=== PATIENT | female | born 1940 | race Hispanic/Latino ===

== ENCOUNTER 2017-07-07 12:46 | Inpatient (IN) | payer MEDICARE, OTHER ==
[2017-07-07 14:18] LABS: Basophils % (Auto) 0.3 % (0.0-1.8); Eosinophils % (Auto) 0.1 % (0.0-4.3); Hematocrit 38.9 % (30.3-42.9); Mean Corpuscular HGB Conc 34 % (30-34); Mean Corpuscular Hemoglobin 29 pg (28-32); Mean Corpuscular Volume 87 fl (79-97); Platelet Count 305 K/mm3 (140-440); Red Blood Count 4.46 M/mm3 (3.65-5.03); Red Cell Distribution Width 13.4 % (13.2-15.2); White Blood Count 10.8 K/mm3 (4.5-11.0)
[2017-07-07 14:28] LABS: INR 1.29 (0.87-1.13)
[2017-07-07 14:38] LABS: Alanine Aminotransferase 7 units/L (7-56); Albumin 2.9 g/dL (3.9-5); Albumin/Globulin Ratio 0.9 %; Alkaline Phosphatase 62 units/L (35-129); Anion Gap 19 mmol/L; BUN/Creatinine Ratio 12; Blood Urea Nitrogen 11 mg/dL (7-17); Calcium 7.2 mg/dL (8.4-10.2); Carbon Dioxide 32 mmol/L (22-30); Chloride 86.8 mmol/L (98-107); Glucose 177 mg/dL (65-100); Sodium 135 mmol/L (137-145)
[2017-07-07 14:50] LABS: Potassium 2.7 mmol/L (3.6-5.0)
[2017-07-07 16:05] LABS: Bacteria,Urine 1+ /HPF (Negative); Bilirubin,Urine NEG (Negative); Blood,Urine NEG (Negative); Ketones,Urine NEG (Negative); Leukocyte Esterase,Urine SM (Negative); Mucus,Urine FEW /HPF; Nitrite,Urine NEG (Negative); Urobilinogen,Urine < 2.0 mg/dL (<2.0)
[2017-07-07] MEDS ORDERED: MAGNESIUM SULFATE 2GM/50ML 2 GM/50 ML BAG IV ONE (16:47)
[2017-07-07] MEDS ORDERED: ATROVENT IH ONE (16:47)
[2017-07-07] MEDS ORDERED: PROVENTIL IH ONE (16:47)
[2017-07-07] MEDS ORDERED: TYLENOL PO ONE (16:48)
--- NOTE | 2017-07-07 16:48 | Emergency Department Report ---
ED General Adult HPI - General Chief complaint: Weakness Stated complaint: WEAKNESS Time Seen by Provider: 07/07/17 16:37 Source: patient, family, EMS (ems notes not available at time of chart dictation), RN notes reviewed, old records reviewed Mode of arrival: Ambulatory Limitations: No Limitations - History of Present Illness Initial comments: Primary care Dr.: Family [facility] Cardiology: Dr Gan Pulmonology: Dr Piedra Past medical history: COPD, diabetes, hypertension, atrial fibrillation on systemic anticoagulation; eliquis This is a 77-year-old female who is previously known to this provider. Patient presents to the ER with a complaint of cough, wheezing, shortness of breath, almost passing out, hypotension, chills and shakes. Patient reports that she was recently diagnosed last week with pneumonia by her respiratory technician, and was treated empirically with azithromycin. She presents to the ER with worsening symptoms, and indicates her blood pressure was low at home, reports that it was in the 70s. Her symptoms have been constant for the past week. They do not radiate anywhere. They do not have exacerbating or relieving factors. -: days(s) Severity scale (0 -10): 0 Consistency: constant Improves with: none Worsens with: none Associated Symptoms: cough, fever/chills, loss of appetite, malaise, shortness of breath, weakness. denies: confusion - Related Data Home Medications Medication Instructions Recorded Confirmed Last Taken Montelukast [Singulair] 10 mg PO QPM PRN 10/05/15 03/04/16 Unknown Promethazine Dm [Phenergan DM 5 ml PO Q6H PRN 10/05/15 03/04/16 Unknown 6.25-15 mg/5 ml] ALPRAZolam [Xanax TAB] 0.25 mg PO BID PRN 03/04/16 03/04/16 03/03/16 23:00 Apixaban [Eliquis] 5 mg PO BID 03/04/16 03/04/16 03/03/16 18:00 Calcium Carbonate/Vitamin D3 1 each PO DAILY 03/04/16 03/04/16 03/03/16 06:30 [Calcium 500 + D Tablet] Furosemide [Lasix TAB] 20 meq PO DAILY 03/04/16 03/04/16 03/03/16 22:30 Insulin Lispro Prot/Lispro 12 unit SQ BID 03/04/16 03/04/16 03/03/16 18:30 [HumaLOG MIX 75/25] Potassium Chloride [Klor-Con] 20 meq PO DAILY 03/04/16 03/04/16 03/03/16 06:30 cloNIDine [Catapres] 0.1 mg PO BID PRN 03/04/16 03/04/16 03/03/16 22:20 metFORMIN [Glucophage] 500 mg PO BID 03/04/16 03/04/16 03/03/16 Previous Rx's Medication Instructions Recorded Last Taken Type amLODIPine [Norvasc] 5 mg PO QDAY #30 tablet 10/10/15 03/03/16 06:30 Rx Allergies Allergy/AdvReac Type Severity Reaction Status Date / Time levofloxacin [From Levaquin] Allergy Swelling Verified 10/05/15 15:56 lisinopril Allergy Angioedema Verified 10/06/15 04:05 Penicillins Allergy Swelling Verified 12/22/13 19:40 ED Review of Systems ROS: Stated complaint: WEAKNESS Other details as noted in HPI Constitutional: fever, malaise, weakness ENT: congestion Respiratory: cough, shortness of breath, SOB with exertion, wheezing Cardiovascular: denies: syncope Gastrointestinal: denies: vomiting Genitourinary: denies: dysuria Musculoskeletal: arthralgia Skin: denies: lesions Neurological: weakness ED Past Medical Hx - Past Medical History Hx Hypertension: Yes Hx Diabetes: Yes Hx COPD: Yes Additional medical history: chronic back pain.Afib - Surgical History Hx Cholecystectomy: Yes Additional Surgical History: hysterectomy colonectomy, elbow surgery - Social History Smoking Status: Never Smoker - Medications Home Medications: Home Medications Medication Instructions Recorded Confirmed Last Taken Type Montelukast [Singulair] 10 mg PO QPM PRN 10/05/15 03/04/16 Unknown History Promethazine Dm [Phenergan DM 5 ml PO Q6H PRN 10/05/15 03/04/16 Unknown History 6.25-15 mg/5 ml] amLODIPine [Norvasc] 5 mg PO QDAY #30 tablet 10/10/15 03/04/16 03/03/16 06:30 Rx ALPRAZolam [Xanax TAB] 0.25 mg PO BID PRN 03/04/16 03/04/16 03/03/16 23:00 History Apixaban [Eliquis] 5 mg PO BID 03/04/16 03/04/16 03/03/16 18:00 History Calcium Carbonate/Vitamin D3 1 each PO DAILY 03/04/16 03/04/16 03/03/16 06:30 History [Calcium 500 + D Tablet] Furosemide [Lasix TAB] 20 meq PO DAILY 03/04/16 03/04/16 03/03/16 22:30 History Insulin Lispro Prot/Lispro 12 unit SQ BID 03/04/16 03/04/16 03/03/16 18:30 History [HumaLOG MIX 75/25] Potassium Chloride [Klor-Con] 20 meq PO DAILY 03/04/16 03/04/16 03/03/16 06:30 History cloNIDine [Catapres] 0.1 mg PO BID PRN 03/04/16 03/04/16 03/03/16 22:20 History metFORMIN [Glucophage] 500 mg PO BID 03/04/16 03/04/16 03/03/16 History ED Physical Exam - General Limitations: No Limitations General appearance: alert, in distress - Head Head exam: Present: atraumatic, normocephalic - Eye Eye exam: Present: normal appearance, EOMI - ENT ENT exam: Present: normal exam, normal orophraynx, mucous membranes moist - Neck Neck exam: Present: normal inspection, full ROM - Respiratory Respiratory exam: Present: respiratory distress, wheezes, rhonchi - Cardiovascular Cardiovascular Exam: Present: normal rhythm, tachycardia, normal heart sounds. Absent: systolic murmur, diastolic murmur, rubs, gallop - GI/Abdominal GI/Abdominal exam: Present: soft, normal bowel sounds. Absent: distended, tenderness, guarding, rebound, rigid, pulsatile mass - Extremities Exam Extremities exam: Present: normal inspection, full ROM. Absent: pedal edema, calf tenderness - Back Exam Back exam: Present: normal inspection, full ROM. Absent: tenderness, CVA tenderness (R), paraspinal tenderness, vertebral tenderness - Neurological Exam Neurological exam: Present: alert, oriented X3, normal gait, other (Extraocular movements intact. Tongue midline. No facial droop. Facial sensation intact to light touch in the V1, V2, V3 distribution bilaterally. 5 and 5 strength in 4 extremities.. Sensation is intact to light touch in 4 extremities.). Absent : motor sensory deficit - Psychiatric Psychiatric exam: Present: normal affect, normal mood - Skin Skin exam: Present: warm, dry, intact, normal color. Absent: rash ED Course Vital Signs 07/07/17 07/07/17 14:14 14:16 Temperature 98.7 F Pulse Rate 109 H Respiratory 17 20 Rate Blood Pressure 136/60 [Left] O2 Sat by Pulse 96 94 Oximetry - Reevaluation(s) Reevaluation #1: 07/07/17 19:24 Patient also found to have multiple electrolyte derangements, including hypokalemia and hypomagnesemia; these have been repleted. ED Medical Decision Making - Lab Data Result diagrams: 07/07/17 13:58 07/07/17 13:58 Vital Signs 07/07/17 07/07/17 14:14 14:16 Temperature 98.7 F Pulse Rate 109 H Respiratory 17 20 Rate Blood Pressure 136/60 [Left] O2 Sat by Pulse 96 94 Oximetry Lab Results 07/07/17 07/07/17 07/07/17 Range/Units 13:58 13:58 13:58 WBC 10.8 (4.5-11.0) K/mm3 RBC 4.46 (3.65-5.03) M/mm3 Hgb 13.0 (10.1-14.3) gm/dl Hct 38.9 (30.3-42.9) % MCV 87 (79-97) fl MCH 29 (28-32) pg MCHC 34 (30-34) % RDW 13.4 (13.2-15.2) % Plt Count 305 (140-440) K/mm3 Lymph % (Auto) 4.6 L (13.4-35.0) % [place] % (Auto) 7.9 H (0.0-7.3) % Eos % (Auto) 0.1 (0.0-4.3) % Baso % (Auto) 0.3 (0.0-1.8) % Lymph # 0.5 L (1.2-5.4) K/mm3 [place] # 0.9 H (0.0-0.8) K/mm3 Eos # 0.0 (0.0-0.4) K/mm3 Baso # 0.0 (0.0-0.1) K/mm3 Seg Neutrophils % 87.1 H (40.0-70.0) % Seg Neutrophils # 9.4 H (1.8-7.7) K/mm3 PT 16.7 H (12.2-14.9) Sec. INR 1.29 H (0.87-1.13) Sodium 135 L (137-145) mmol/L Potassium 2.7 L* (3.6-5.0) mmol/L Chloride 86.8 L (98-107) mmol/L Carbon Dioxide 32 H (22-30) mmol/L Anion Gap 19 mmol/L BUN 11 (7-17) mg/dL Creatinine 0.9 (0.7-1.2) mg/dL Estimated GFR > 60 ml/min BUN/Creatinine Ratio 12 % Glucose 177 H (65-100) mg/dL Calcium 7.2 L (8.4-10.2) mg/dL Magnesium (1.7-2.3) mg/dL Total Bilirubin 0.60 (0.1-1.2) mg/dL AST 17 (5-40) units/L ALT 7 (7-56) units/L Alkaline Phosphatase 62 (35-129) units/L Total Protein 6.0 L (6.3-8.2) g/dL Albumin 2.9 L (3.9-5) g/dL Albumin/Globulin Ratio 0.9 % Urine Color (Yellow) Urine Turbidity (Clear) Urine pH (5.0-7.0) Ur Specific [place] (1.003-1.030) Urine Protein (Negative) mg/dL Urine Glucose (UA) (Negative) mg/dL Urine Ketones (Negative) mg/dL Urine Blood (Negative) Urine Nitrite (Negative) Urine Bilirubin (Negative) Urine Urobilinogen (<2.0) mg/dL Ur Leukocyte Esterase (Negative) Urine WBC (Auto) (0.0-6.0) /HPF Urine RBC (Auto) (0.0-6.0) /HPF U Epithel Cells (Auto) (0-13.0) /HPF Urine Bacteria (Auto) (Negative) /HPF Urine Mucus /HPF 07/07/17 07/07/17 Range/Units 13:58 15:30 WBC (4.5-11.0) K/mm3 RBC (3.65-5.03) M/mm3 Hgb (10.1-14.3) gm/dl Hct (30.3-42.9) % MCV (79-97) fl MCH (28-32) pg MCHC (30-34) % RDW (13.2-15.2) % Plt Count (140-440) K/mm3 Lymph % (Auto) (13.4-35.0) % [place] % (Auto) (0.0-7.3) % Eos % (Auto) (0.0-4.3) % Baso % (Auto) (0.0-1.8) % Lymph # (1.2-5.4) K/mm3 [place] # (0.0-0.8) K/mm3 Eos # (0.0-0.4) K/mm3 Baso # (0.0-0.1) K/mm3 Seg Neutrophils % (40.0-70.0) % Seg Neutrophils # (1.8-7.7) K/mm3 PT (12.2-14.9) Sec. INR (0.87-1.13) Sodium (137-145) mmol/L Potassium (3.6-5.0) mmol/L Chloride (98-107) mmol/L Carbon Dioxide (22-30) mmol/L Anion Gap mmol/L BUN (7-17) mg/dL Creatinine (0.7-1.2) mg/dL Estimated GFR ml/min BUN/Creatinine Ratio % Glucose (65-100) mg/dL Calcium (8.4-10.2) mg/dL Magnesium 1.10 L (1.7-2.3) mg/dL Total Bilirubin (0.1-1.2) mg/dL AST (5-40) units/L ALT (7-56) units/L Alkaline Phosphatase (35-129) units/L Total Protein (6.3-8.2) g/dL Albumin (3.9-5) g/dL Albumin/Globulin Ratio % Urine Color Yellow (Yellow) Urine Turbidity Clear (Clear) Urine pH 6.0 (5.0-7.0) Ur Specific [place] 1.016 (1.003-1.030) Urine Protein 30 mg/dl (Negative) mg/dL Urine Glucose (UA) 50 (Negative) mg/dL Urine Ketones Neg (Negative) mg/dL Urine Blood Neg (Negative) Urine Nitrite Neg (Negative) Urine Bilirubin Neg (Negative) Urine Urobilinogen < 2.0 (<2.0) mg/dL Ur Leukocyte Esterase Sm (Negative) Urine WBC (Auto) 5.0 (0.0-6.0) /HPF Urine RBC (Auto) 3.0 (0.0-6.0) /HPF U Epithel Cells (Auto) 2.0 (0-13.0) /HPF Urine Bacteria (Auto) 1+ (Negative) /HPF Urine Mucus Few /HPF - EKG Data 07/07/17 19:21 Sinus tachycardia, 101 bpm, normal axis, QTC prolonged, poor R-wave progression , abnormal EKG, not morphologically consistent with ST elevation myocardial infarction, nonspecific changes when compared to prior EKG next - Radiology Data Radiology results: image reviewed interpreted by me: X-ray of the chest demonstrates COPD, bilateral lower lobe pneumonia - Medical Decision Making Differential diagnosis, including but not limited to: Pneumonia, bronchitis, COPD exacerbation, sepsis Assessment and plan: Elderly 77-year-old female, saturating 87% 88% on room air , with COPD, wheezing, shortness of breath, history of hypertension, chills and home, x-ray of the chest suggest bilateral lower lobe pneumonia. Patient rules in for sepsis. Patient will be treated along sepsis pathway. She endorses a penicillin allergy but does not know what her specific allergy is. She was given ceftriaxone without difficulty. She was given albuterol, Atrovent, steroids. Blood cultures drawn. Case was discussed with her covering respiratory technician, Dr. Barahona, who agreed with plan for admission, and decayed and she would see the patient in the morning in consultation. The patient is allergic/intolerance to Levaquin, and has already completed a course of azithromycin, therefore doxycycline is given for atypical coverage. Case is presented to the Hospital physician, Dr. Ordaz, who accepted the patient to the medical service. Critical care attestation.: If time is entered above; I have spent that time in minutes in the direct care of this critically ill patient, excluding procedure time. ED Disposition Clinical Impression: COPD exacerbation, Pneumonia of both lower lobes, Hypokalemia, Hypomagnesemia, SIRS (systemic inflammatory response syndrome) Disposition: OP ADMIT IP TO THIS HOSP Is pt being admited?: Yes Condition: Good Instructions: Chronic Bronchitis (ED), Bacterial Pneumonia (ED) Referrals: PRIMARY CARE, [Primary Care Provider] - 3-5 Days
[2017-07-07] MEDS: NACL 0.9% 500 ML 500 ML IV ONE ×2 (17:13→19:16)
[2017-07-07] MEDS ORDERED: KCL 20MEQ/100ML 20 MEQ/100 ML BAG IV ONE (17:19)
[2017-07-07] MEDS ORDERED: K-DUR PO ONE (17:19)
[2017-07-07] MEDS ORDERED: ROCEPHIN/NS 1 GM/50 ML 1 GM/50 ML BAG IV ONE (17:38)
[2017-07-07] MEDS ORDERED: VIBRAMYCIN PO ONE (17:38)
[2017-07-07] MEDS: KCL 10MEQ/100ML 10 MEQ/100 ML BAG IV SCH ×2 (18:05→19:17)
[2017-07-07] MEDS ORDERED: cefTRIAXone 1 GM in NACL 0.9% 20 ML IV ONE (18:30)
[2017-07-07] MEDS ORDERED: NACL 0.9% 1000 ML 1,000 ML IV ONE ×2 (19:21→19:23)
--- NOTE | 2017-07-07 21:19 | History and Physical Report ---
History of Present Illness Date of examination: 07/07/17 Date of admission: 07/07/17 19:25 Chief complaint: CC Cough and SOB for 1 week History of present illness: WILLIAM: This is a 77-year-old female presents to the ER with a complaint of cough, wheezing, shortness of breath, almost passing out, hypotension, chills and shakes. Patient reports that she was recently diagnosed last week with pneumonia by her chemical applicator, and was treated empirically with azithromycin. She presents to the ER with worsening symptoms, and indicates her blood pressure was low at home, reports that it was in the 70s. Her symptoms have been constant for the past week. They do not radiate anywhere. They do not have exacerbating or relieving factors. Past Medical History Hypertension COPD: chronic back pain. Afib - Surgical History Hx Cholecystectomy: Yes Additional Surgical History: hysterectomy colonectomy, elbow surgery - Social History Smoking Status: Never Smoker - Medications Home Medications: Home Medications Medication Instructions Recorded Confirmed Last Taken Type Montelukast [Singulair] 10 mg PO QPM PRN 10/05/15 03/04/16 Unknown History Promethazine Dm [Phenergan DM 5 ml PO Q6H PRN 10/05/15 03/04/16 Unknown History 6.25-15 mg/5 ml] amLODIPine [Norvasc] 5 mg PO QDAY #30 tablet 10/10/15 03/04/16 03/03/16 06:30 Rx ALPRAZolam [Xanax TAB] 0.25 mg PO BID PRN 03/04/16 03/04/16 03/03/16 23:00 History Apixaban [Eliquis] 5 mg PO BID 03/04/16 03/04/16 03/03/16 18:00 History Calcium Carbonate/Vitamin D3 1 each PO DAILY 03/04/16 03/04/16 03/03/16 06:30 History [Calcium 500 + D Tablet] Furosemide [Lasix TAB] 20 meq PO DAILY 03/04/16 03/04/16 03/03/16 22:30 History Insulin Lispro Prot/Lispro 12 unit SQ BID 03/04/16 03/04/16 03/03/16 18:30 History [HumaLOG MIX 75/25] Potassium Chloride [Klor-Con] 20 meq PO DAILY 03/04/16 03/04/1603/03/16 06:30 History cloNIDine [Catapres] 0.1 mg PO BID PRN 03/04/16 03/04/16 03/03/16 22:20 History metFORMIN [Glucophage] 500 mg PO BID 03/04/16 03/04/16 03/03/16 History ROS: Stated complaint: WEAKNESS Other details as noted in HPI Constitutional: fever, malaise, weakness ENT: congestion Respiratory: cough, shortness of breath, SOB with exertion, wheezing Cardiovascular: denies: syncope Gastrointestinal: denies: vomiting Genitourinary: denies: dysuria Musculoskeletal: arthralgia Skin: denies: lesions Neurological: weakness Medications and Allergies Allergies Allergy/AdvReac Type Severity Reaction Status Date / Time levofloxacin [From Levaquin] Allergy Swelling Verified 10/05/15 15:56 lisinopril Allergy Angioedema Verified 10/06/15 04:05 Penicillins Allergy Swelling Verified 12/22/13 19:40 Home Medications Medication Instructions Recorded Confirmed Last Taken Type ALPRAZolam [Xanax TAB] 0.25 mg PO Q12H PRN 03/04/16 07/07/17 03/03/16 23:00 History Apixaban [Eliquis] 5 mg PO QDAY 07/07/17 07/07/17 Unknown History Gabapentin [Neurontin] 300 mg PO HS 07/07/17 07/07/17 Unknown History Insulin Detemir [Levemir Flextouch] 10 units SUB-Q HS 07/07/17 07/07/17 Unknown History Metoprolol [Lopressor] 100 mg PO BID 07/07/17 07/07/17 Unknown History NIFEdipine [Nifedipine ER] 60 mg PO QDAY 07/07/17 07/07/17 Unknown History Valsartan/Hydrochlorothiazide 1 tab PO QDAY 07/07/17 07/07/17 Unknown History [Diovan Hct 160-25 mg] Exam - Constitutional Vitals: Temp Pulse Resp BP Pulse Ox 98 F 80 20 134/77 100 07/07/17 21:01 07/07/17 21:01 07/07/17 21:01 07/07/17 21:01 07/07/17 21:01 General appearance: Present: mild distress, well-nourished - EENT Eyes: Present: PERRL ENT: hearing intact, clear oral mucosa - Neck Neck: Present: supple, normal ROM - Respiratory Respiratory effort: normal Respiratory: bilateral: CTA, diminished, rhonchi, wheezing - Cardiovascular Heart rate: 90 Rhythm: regular Heart Sounds: Present: S1 & S2. Absent: rub, click - Extremities Extremities: no ischemia, pulses intact, pulses symmetrical, No edema Peripheral Pulses: within normal limits - Abdominal General gastrointestinal: Present: soft, non-tender, non-distended, normal bowel sounds Female genitourinary: Present: normal - Rectal Rectal Exam: deferred - Integumentary Integumentary: Present: clear, warm, dry - Musculoskeletal Musculoskeletal: gait normal, strength equal bilaterally - Psychiatric Psychiatric: appropriate mood/affect, intact judgment & insight - Neurologic Neurologic: CNII-XII intact, moves all extremities - Allied Health Allied health notes reviewed: nursing, case management Results - Labs CBC & Chem 7: 07/07/17 13:58 07/07/17 13:58 Labs: Laboratory Last Values WBC 10.8 K/mm3 (4.5-11.0) 07/07/17 13:58 RBC 4.46 M/mm3 (3.65-5.03) 07/07/17 13:58 Hgb 13.0 gm/dl (10.1-14.3) 07/07/17 13:58 Hct 38.9 % (30.3-42.9) 07/07/17 13:58 MCV 87 fl (79-97) 07/07/17 13:58 MCH 29 pg (28-32) 07/07/17 13:58 MCHC 34 % (30-34) 07/07/17 13:58 RDW 13.4 % (13.2-15.2) 07/07/17 13:58 Plt Count 305 K/mm3 (140-440) 07/07/17 13:58 Lymph % (Auto) 4.6 % (13.4-35.0) L 07/07/17 13:58 [place] % (Auto) 7.9 % (0.0-7.3) H 07/07/17 13:58 Eos % (Auto) 0.1 % (0.0-4.3) 07/07/17 13:58 Baso % (Auto) 0.3 % (0.0-1.8) 07/07/17 13:58 Lymph # 0.5 K/mm3 (1.2-5.4) L 07/07/17 13:58 [place] # 0.9 K/mm3 (0.0-0.8) H 07/07/17 13:58 Eos # 0.0 K/mm3 (0.0-0.4) 07/07/17 13:58 Baso # 0.0 K/mm3 (0.0-0.1) 07/07/17 13:58 Seg Neutrophils % 87.1 % (40.0-70.0) H 07/07/17 13:58 Seg Neutrophils # 9.4 K/mm3 (1.8-7.7) H 07/07/17 13:58 PT 16.7 Sec. (12.2-14.9) H 07/07/17 13:58 INR 1.29 (0.87-1.13) H 07/07/17 13:58 Sodium 135 mmol/L (137-145) L 07/07/17 13:58 Potassium 2.7 mmol/L (3.6-5.0) L* 07/07/17 13:58 Chloride 86.8 mmol/L (98-107) L 07/07/17 13:58 Carbon Dioxide 32 mmol/L (22-30) H 07/07/17 13:58 Anion Gap 19 mmol/L 07/07/17 13:58 BUN 11 mg/dL (7-17) 07/07/17 13:58 Creatinine 0.9 mg/dL (0.7-1.2) 07/07/17 13:58 Estimated GFR > 60 ml/min 07/07/17 13:58 BUN/Creatinine Ratio 12 % 07/07/17 13:58 Glucose 177 mg/dL (65-100) H 07/07/17 13:58 Lactic Acid 3.40 mmol/L (0.7-2.0) H* 07/07/17 19:36 Calcium 7.2 mg/dL (8.4-10.2) L 07/07/17 13:58 Magnesium 1.10 mg/dL (1.7-2.3) L 07/07/17 13:58 Total Bilirubin 0.60 mg/dL (0.1-1.2) 07/07/17 13:58 AST 17 units/L (5-40) 07/07/17 13:58 ALT 7 units/L (7-56) 07/07/17 13:58 Alkaline Phosphatase 62 units/L (35-129) 07/07/17 13:58 Total Protein 6.0 g/dL (6.3-8.2) L 07/07/17 13:58 Albumin 2.9 g/dL (3.9-5) L 07/07/17 13:58 Albumin/Globulin Ratio 0.9 % 07/07/17 13:58 Urine Color Yellow (Yellow) 07/07/17 15:30 Urine Turbidity Clear (Clear) 07/07/17 15:30 Urine pH 6.0 (5.0-7.0) 07/07/17 15:30 Ur Specific [place] 1.016 (1.003-1.030) 07/07/17 15:30 Urine Protein 30 mg/dl mg/dL (Negative) 07/07/17 15:30 Urine Glucose (UA) 50 mg/dL (Negative) 07/07/17 15:30 Urine Ketones Neg mg/dL (Negative) 07/07/17 15:30 Urine Blood Neg (Negative) 07/07/17 15:30 Urine Nitrite Neg (Negative) 07/07/17 15:30 Urine Bilirubin Neg (Negative) 07/07/17 15:30 Urine Urobilinogen < 2.0 mg/dL (<2.0) 07/07/17 15:30 Ur Leukocyte Esterase Sm (Negative) 07/07/17 15:30 Urine WBC (Auto) 5.0 /HPF (0.0-6.0) 07/07/17 15:30 Urine RBC (Auto) 3.0 /HPF (0.0-6.0) 07/07/17 15:30 U Epithel Cells (Auto) 2.0 /HPF (0-13.0) 07/07/17 15:30 Urine Bacteria (Auto) 1+ /HPF (Negative) 07/07/17 15:30 Urine Mucus Few /HPF 07/07/17 15:30 - Imaging and Cardiology EKG: report reviewed Chest x-ray: report reviewed (Ivan PNA -prelim reading) Assessment and Plan Advance Directives: Yes (full code) VTE prophylaxis?: Chemical Plan of care discussed with patient/family: Yes - Patient Problems (1) Acute respiratory failure with hypoxia Current Visit: No Status: Acute Plan to address problem: Was Hypoxic at the time of admission to ED O2 as necessary (2) SIRS (systemic inflammatory response syndrome) Current Visit: Yes Status: Acute Plan to address problem: Sec to Ivan PNA (3) COPD exacerbation Current Visit: Yes Status: Acute Plan to address problem: Neb tx Solumedrol and IV Rocephin/Zithromax (4) Hypokalemia Current Visit: Yes Status: Acute Plan to address problem: Supplemented (5) Type 2 diabetes mellitus Current Visit: No Status: Chronic Qualifiers: Diabetes mellitus complication status: without complication Diabetes mellitus half-way insulin use: with half-way use Qualified Code(s): E11.9 - Type 2 diabetes mellitus without complications; Z79.4 - nursing home (current) use of insulin; Z79.4 - nursing home (current) use of insulin; Z79.4 - nursing home ( current) use of insulin; Z79.4 - watermaster (current) use of insulin Plan to address problem: Cont Insulin and coverage (6) Pneumonia of both lower lobes Current Visit: Yes Status: Acute Qualifiers: Aspiration pneumonia type: unspecified Plan to address problem: Cont Abx (7) Chronic a-fib Current Visit: Yes Status: Chronic Plan to address problem: On Eliquis (8) HTN (hypertension) Current Visit: Yes Status: Chronic Qualifiers: Hypertension type: essential hypertension Qualified Code(s): I10 - Essential (primary) hypertension Plan to address problem: Cont antihypertensives (9) DVT prophylaxis Current Visit: No Status: Acute Plan to address problem: on Eliquis
[2017-07-07] MEDS ORDERED: INSULIN DETEMIR 10 UNIT SUB-Q SCH (22:00)
[2017-07-07] MEDS ORDERED: ELIQUIS PO SCH (22:00)
[2017-07-07] MEDS: LOPRESSOR PO SCH (22:23)
[2017-07-07] MEDS: NEURONTIN PO SCH (22:24)
[2017-07-07] MEDS: DIOVAN PO SCH (22:24)
[2017-07-07] MEDS: NOVOLOG SUB-Q SCH (22:40)
[2017-07-07] MEDS: DUONEB *Not for PRN Use IH SCH (23:12)
[2017-07-07] MEDS: XANAX PO PRN (23:23)
[2017-07-07] MEDS: PROCARDIA XL PO SCH (23:24)
[2017-07-07] MEDS: ZITHROMAX 500 MG in NACL 0.9% 250ML 250 ML IV SCH (23:25)
[2017-07-07] MEDS: LEVEMIR SUB-Q SCH (23:27)
[2017-07-08] MEDS: DUONEB *Not for PRN Use IH SCH ×4 (01:54→19:19)
--- NOTE | 2017-07-08 07:20 | XRay Report ---
AP CHEST: HISTORY: Cough, shortness of breath Compared to 03/04/16. Moderate to severe emphysema is suspected. Heart size is within normal limits. Mild vascular congestion and trace pleural effusions are suspected. No consolidation or pneumothorax. IMPRESSION: COPD with mild CHF.
[2017-07-08 08:54] LABS: Hematocrit 37.6 % (30.3-42.9); Hemoglobin 12.3 gm/dl (10.1-14.3); Mean Corpuscular HGB Conc 33 % (30-34); Mean Corpuscular Hemoglobin 28 pg (28-32); Mean Corpuscular Volume 86 fl (79-97); Platelet Count 298 K/mm3 (140-440); Red Blood Count 4.39 M/mm3 (3.65-5.03); Red Cell Distribution Width 13.5 % (13.2-15.2); White Blood Count 7.8 K/mm3 (4.5-11.0)
[2017-07-08 09:10] LABS: Anion Gap 14 mmol/L; BUN/Creatinine Ratio 15; Blood Urea Nitrogen 12 mg/dL (7-17); Carbon Dioxide 32 mmol/L (22-30); Chloride 95.5 mmol/L (98-107); Glucose 227 mg/dL (65-100); Potassium 3.5 mmol/L (3.6-5.0); Sodium 138 mmol/L (137-145)
[2017-07-08 09:35] LABS: Basophils % (Manual) 0 % (0.0-1.8); Blastocytes % (Manual) 0 %; Diff Status Complete; Eosinophils % (Manual) 0 % (0.0-4.3); Platelet Estimate Consistent w Auto; RBC Morphology Normal
[2017-07-08] MEDS: PROCARDIA XL PO SCH (09:47)
[2017-07-08] MEDS: ELIQUIS PO SCH ×2 (09:47→21:56)
[2017-07-08] MEDS: KCL 10MEQ/100ML 10 MEQ/100 ML BAG IV SCH ×4 (09:48→16:46)
[2017-07-08] MEDS: DIOVAN PO SCH (09:48)
[2017-07-08] MEDS: LOPRESSOR PO SCH ×2 (09:49→21:56)
[2017-07-08] MEDS: HCTZ PO SCH (09:49)
[2017-07-08] MEDS: cefTRIAXone 2 GM in NACL 0.9% 20 ML IV SCH (09:53)
[2017-07-08] MEDS: NOVOLOG SUB-Q SCH ×3 (09:53→16:47)
--- NOTE | 2017-07-08 13:43 | Consultation ---
History of Present Illness Consult date: 07/08/17 Requesting physician: FERNY BAILEY Reason for consult: pneumonia History of present illness: 77 yo with COPD, not on home O2, presents with a week or so of increased SOB, wheezing, chest congestion, cough with white sputum, low-grade fevers. No chest pain, hemoptysis. Did not get better with a Zpak. Feels better since admit, on 2L NC. Active Medications Albuterol/Ipratropium (Duoneb *Not For Prn Use*) 1 ampul IH Q6HRT [facility] Last Admin: 07/08/17 09:02 Dose: 1 ampul Alprazolam (Xanax) 0.25 mg PO Q12H PRN PRN Reason: Anxiety Last Admin: 07/07/17 23:23 Dose: 0.25 mg Apixaban (Eliquis) 5 mg PO BID KATHLEEN PRN Reason: Protocol Last Admin: 07/08/17 09:47 Dose: 5 mg Azithromycin (Zithromax) 500 mg PO QDAY KATHLEEN Gabapentin (Neurontin) 300 mg PO HS [facility] Last Admin: 07/07/17 22:24 Dose: 300 mg Hydrochlorothiazide (Hctz) 25 mg PO QDAY [facility] Last Admin: 07/08/17 09:49 Dose: 25 mg Ceftriaxone Sodium 2 gm/ (Sodium Chloride) 20 mls @ 20 mls/10 min IV Q24HR KATHLEEN PRN Reason: Protocol Last Admin: 07/08/17 09:53 Dose: 20 mls/10 min Azithromycin 500 mg/ Sodium (Chloride) 250 mls @ 250 mls/hr IV Q24HR [facility] Stop: 07/08/17 21:59 Last Admin: 07/07/17 23:25 Dose: 250 mls/hr Sodium Chloride (Nacl 0.9% 1000 Ml) 1,000 mls @ 75 mls/hr IV DIRECT KATHLEEN Insulin Aspart (Novolog) 0 units SUB-Q ACHS KATHLEEN PRN Reason: Protocol Last Admin: 07/08/17 09:53 Dose: 1 units Insulin Detemir (Levemir) 10 units SUB-Q QHS [facility] Last Admin: 07/07/17 23:27 Dose: 10 units Methylprednisolone Sodium Succinate (Solu-Medrol) 40 mg IV Q8H [facility] Last Admin: 07/08/17 09:53 Dose: 40 mg Metoprolol Tartrate (Lopressor) 100 mg PO BID [facility] Last Admin: 07/08/17 09:49 Dose: 100 mg Nifedipine (Procardia Xl) 60 mg PO QDAY [facility] Last Admin: 07/08/17 09:47 Dose: 60 mg Valsartan (Diovan) 160 mg PO QDAY [facility] Last Admin: 07/08/17 09:48 Dose: 160 mg Past History Past Medical History: other (DM2, COPD, Afib, HTN) Social history: full code. denies: smoking, alcohol abuse, prescription drug abuse, IV drug use Family history: other (No pulm issues reported) Medications and Allergies Allergies Allergy/AdvReac Type Severity Reaction Status Date / Time levofloxacin [From Levaquin] Allergy Swelling Verified 10/05/15 15:56 lisinopril Allergy Angioedema Verified 10/06/15 04:05 Penicillins Allergy Swelling Verified 12/22/13 19:40 Home Medications Medication Instructions Recorded Confirmed Last Taken Type ALPRAZolam [Xanax TAB] 0.25 mg PO Q12H PRN 03/04/16 07/07/17 03/03/16 23:00 History Apixaban [Eliquis] 5 mg PO QDAY 07/07/17 07/07/17 Unknown History Gabapentin [Neurontin] 300 mg PO 07/07/17 07/07/17 Unknown History Insulin Detemir [Levemir Flextouch] 10 units SUB-Q 07/07/17 07/07/17 Unknown History Metoprolol [Lopressor] 100 mg PO BID 07/07/17 07/07/17 Unknown History NIFEdipine [Nifedipine ER] 60 mg PO QDAY 07/07/17 07/07/17 Unknown History Valsartan/Hydrochlorothiazide 1 tab PO QDAY 07/07/17 07/07/17 Unknown History [Diovan Hct 160-25 mg] Active Meds: Active Medications Albuterol/Ipratropium (Duoneb *Not For Prn Use*) 1 ampul IH Q6HRT [facility] Last Admin: 07/08/17 09:02 Dose: 1 ampul Alprazolam (Xanax) 0.25 mg PO Q12H PRN PRN Reason: Anxiety Last Admin: 07/07/17 23:23 Dose: 0.25 mg Apixaban (Eliquis) 5 mg PO BID [facility] PRN Reason: Protocol Last Admin: 07/08/17 09:47 Dose: 5 mg Azithromycin (Zithromax) 500 mg PO QDAY [facility] Gabapentin (Neurontin) 300 mg PO HS [facility] Last Admin: 07/07/17 22:24 Dose: 300 mg Hydrochlorothiazide (Hctz) 25 mg PO QDAY [facility] Last Admin: 07/08/17 09:49 Dose: 25 mg Ceftriaxone Sodium 2 gm/ (Sodium Chloride) 20 mls @ 20 mls/10 min IV Q24HR [facility] PRN Reason: Protocol Last Admin: 07/08/17 09:53 Dose: 20 mls/10 min Azithromycin 500 mg/ Sodium (Chloride) 250 mls @ 250 mls/hr IV Q24HR [facility] Stop: 07/08/17 21:59 Last Admin: 07/07/17 23:25 Dose: 250 mls/hr Sodium Chloride (Nacl 0.9% 1000 Ml) 1,000 mls @ 75 mls/hr IV DIRECT KATHLEEN Insulin Aspart (Novolog) 0 units SUB-Q ACHS [facility] PRN Reason: Protocol Last Admin: 07/08/17 09:53 Dose: 1 units Insulin Detemir (Levemir) 10 units SUB-Q QHS [facility] Last Admin: 07/07/17 23:27 Dose: 10 units Methylprednisolone Sodium Succinate (Solu-Medrol) 40 mg IV Q8H [facility] Last Admin: 07/08/17 09:53 Dose: 40 mg Metoprolol Tartrate (Lopressor) 100 mg PO BID [facility] Last Admin: 07/08/17 09:49 Dose: 100 mg Nifedipine (Procardia Xl) 60 mg PO QDAY [facility] Last Admin: 07/08/17 09:47 Dose: 60 mg Valsartan (Diovan) 160 mg PO QDAY [facility] Last Admin: 07/08/17 09:48 Dose: 160 mg Review of Systems All systems: negative Physical Examination Vital signs: Vital Signs Resp Pulse Ox 27 H 87 07/07/17 14:04 07/07/17 14:04 General appearance: no acute distress, alert Eyes: non-icteric ENT: oropharynx moist Neck: supple Effort: normal Ascultation: Bilateral: rales (bases) Cardiovascular: regular rate and rhythm (no mrg) Gastrointestinal: normoactive bowel sounds, soft, non-tender, non-distended Integumentary: normal Extremities: no cyanosis, no edema, pink and warm Musculoskeletal: no deformities normal mental status, non-focal exam, pupils equal and round, CN II-XII normal mood appropriate, affect normal Results - Laboratory Findings CBC and BMP: 07/08/17 08:28 07/08/17 08:28 PT/INR, D-dimer PT 16.7 Sec. (12.2-14.9) H 07/07/17 13:58 INR 1.29 (0.87-1.13) H 07/07/17 13:58 Abnormal lab findings: Abnormal Labs 07/07/17 07/07/17 07/07/17 13:58 13:58 13:58 Lymph % (Auto) 4.6 L [place] % (Auto) 7.9 H Lymph # 0.5 L [place] # 0.9 H Seg Neutrophils % 87.1 H Seg Neuts % (Manual) Lymphocytes % (Manual) Seg Neutrophils # 9.4 H Lymphocytes # (Manual) PT 16.7 H INR 1.29 H Sodium 135 L Potassium 2.7 L* Chloride 86.8 L Carbon Dioxide 32 H Glucose 177 H POC Glucose Lactic Acid Calcium 7.2 L Magnesium Total Protein 6.0 L Albumin 2.9 L 07/07/17 07/07/17 07/07/17 13:58 19:36 20:53 Lymph % (Auto) [place] % (Auto) Lymph # [place] # Seg Neutrophils % Seg Neuts % (Manual) Lymphocytes % (Manual) Seg Neutrophils # Lymphocytes # (Manual) PT INR Sodium Potassium Chloride Carbon Dioxide Glucose POC Glucose Lactic Acid 3.40 H* 5.00 H* Calcium Magnesium 1.10 L Total Protein Albumin 07/07/17 07/08/17 07/08/17 23:37 07:55 08:28 Lymph % (Auto) [place] % (Auto) Lymph # [place] # Seg Neutrophils % Seg Neuts % (Manual) Lymphocytes % (Manual) Seg Neutrophils # Lymphocytes # (Manual) PT INR Sodium Potassium 3.5 L D Chloride 95.5 L Carbon Dioxide 32 H Glucose 227 H POC Glucose 292 H 156 H Lactic Acid Calcium 7.0 L Magnesium Total Protein Albumin 07/08/17 07/08/17 08:28 11:37 Lymph % (Auto) [place] % (Auto) Lymph # [place] # Seg Neutrophils % Seg Neuts % (Manual) 92.0 H Lymphocytes % (Manual) 6.0 L Seg Neutrophils # Lymphocytes # (Manual) 0.5 L PT INR Sodium Potassium Chloride Carbon Dioxide Glucose POC Glucose 169 H Lactic Acid Calcium Magnesium Total Protein Albumin - Diagnostic Findings Chest x-ray: report reviewed, image reviewed (hyperinflation, bibasilar densities) Assessment and Plan Imp: 1. CAP 2. COPD exac. 3. Acute respiratory failure, hypoxia 4. Lactic acidosis 5. Hypokalemia Rec: 1. Agree w/ current CAP coverage; f/u cultures 2. Repeat lactate; start IVFs 3. K repleted; repeat in AM and check mag 4. Solumedrol, Bronchodilators 5. F/u CXR to ensure infiltrates resolve Plan of care reviewed with patient, she understands/agrees Thanks kindly for the consult. Will follow closely.
--- NOTE | 2017-07-08 14:56 | Progress Note ---
<ANTONIA JASON - Last Filed: 07/08/17 15:25> Assessment and Plan Assessment and plan: Patient is a 77-year-old female presents to the ER with a complaint of cough, wheezing, shortness of breath, almost passing out, hypotension, chills and shakes. Acute respiratory failure with hypoxia Patient oxygen saturation improved with 2LNC; currently SPO2 98%. No acute respiratory distress noted. Aggressive Nebulizers/Inhalers ABG when necessary Oxygen supplement Supportive care Acute COPD exacerbation Chest xray showed acute copd with mild CHF Continue on Duoneb every 6 hours Wean IV steroid Solumedrol Continue on empiric IV Rocephin and IV azithromycin Oxygen as necessary Hypokalemia Supplemented Closely monitor electrolytes Diabetes mellitus Accu-Chek before meals and at bedtime Sliding scale insulin/NovoLog ADA carbohydrate consistent diet Chronic a-fib On Eliquis Hypertension Continue home antihypertensives medications Closely monitor BP DVT prophylaxis on Eliquis History Interval history: Patient denies chest pain, shortness of breath. Labs and nursing notes reviewed. Hospitalist Physical - Constitutional Vitals: Temp Pulse Resp BP Pulse Ox 98.5 F 84 18 117/47 96 07/08/17 14:41 07/08/17 14:41 07/08/17 14:41 07/08/17 14:41 07/08/17 14:41 General appearance: Present: mild distress, well-nourished - EENT Eyes: Present: PERRL ENT: hearing intact - Neck Neck: Present: supple - Respiratory Respiratory effort: normal Respiratory: bilateral: rales - Cardiovascular Rhythm: regular Heart Sounds: Present: S1 & S2 - Abdominal General gastrointestinal: soft, non-tender - Integumentary Integumentary: Present: clear, warm, dry - Psychiatric Psychiatric: appropriate mood/affect - Neurologic Neurologic: moves all extremities - Allied Health Allied health notes reviewed: nursing Results - Labs CBC & Chem 7: 07/08/17 08:28 12 08:28 Labs: Laboratory Last Values WBC 7.8 K/mm3 (4.5-11.0) 07/08/17 08:28 RBC 4.39 M/mm3 (3.65-5.03) 07/08/17 08:28 Hgb 12.3 gm/dl (10.1-14.3) 07/08/17 08:28 Hct 37.6 % (30.3-42.9) 07/08/17 08:28 MCV 86 fl (79-97) 07/08/17 08:28 MCH 28 pg (28-32) 07/08/17 08:28 MCHC 33 % (30-34) 07/08/17 08:28 RDW 13.5 % (13.2-15.2) 07/08/17 08:28 Plt Count 298 K/mm3 (140-440) 07/08/17 08:28 Lymph % (Auto) 4.6 % (13.4-35.0) L 07/07/17 13:58 [place] % (Auto) 7.9 % (0.0-7.3) H 07/07/17 13:58 Eos % (Auto) 0.1 % (0.0-4.3) 07/07/17 13:58 Baso % (Auto) 0.3 % (0.0-1.8) 07/07/17 13:58 Lymph # 0.5 K/mm3 (1.2-5.4) L 07/07/17 13:58 [place] # 0.9 K/mm3 (0.0-0.8) H 07/07/17 13:58 Eos # 0.0 K/mm3 (0.0-0.4) 07/07/17 13:58 Baso # 0.0 K/mm3 (0.0-0.1) 07/07/17 13:58 Add Manual Diff Complete 07/08/17 08:28 Total Counted 100 07/08/17 08:28 Seg Neutrophils % Front Desk Team Member 07/08/17 08:28 Seg Neuts % (Manual) 92.0 % (40.0-70.0) H 07/08/17 08:28 Band Neutrophils % 0 % 07/08/17 08:28 Lymphocytes % (Manual) 6.0 % (13.4-35.0) L 07/08/17 08:28 Reactive Lymphs % (Man) 0 % 07/08/17 08:28 Monocytes % (Manual) 2.0 % (0.0-7.3) 07/08/17 08:28 Eosinophils % (Manual) 0 % (0.0-4.3) 07/08/17 08:28 Basophils % (Manual) 0 % (0.0-1.8) 07/08/17 08:28 Metamyelocytes % 0 % 07/08/17 08:28 Myelocytes % 0 % 07/08/17 08:28 Promyelocytes % 0 % 07/08/17 08:28 Blast Cells % 0 % 07/08/17 08:28 Nucleated RBC % Not Reportable 07/08/17 08:28 Seg Neutrophils # 9.4 K/mm3 (1.8-7.7) H 07/07/17 13:58 Seg Neutrophils # Man 7.2 K/mm3 (1.8-7.7) 07/08/17 08:28 Band Neutrophils # 0.0 K/mm3 07/08/17 08:28 Lymphocytes # (Manual) 0.5 K/mm3 (1.2-5.4) L 07/08/17 08:28 Abs React Lymphs (Man) 0.0 K/mm3 07/08/17 08:28 Monocytes # (Manual) 0.2 K/mm3 (0.0-0.8) 07/08/17 08:28 Eosinophils # (Manual) 0.0 K/mm3 (0.0-0.4) 07/08/17 08:28 Basophils # (Manual) 0.0 K/mm3 (0.0-0.1) 07/08/17 08:28 Metamyelocytes # 0.0 K/mm3 07/08/17 08:28 Myelocytes # 0.0 K/mm3 07/08/17 08:28 Promyelocytes # 0.0 K/mm3 07/08/17 08:28 Blast Cells # 0.0 K/mm3 07/08/17 08:28 WBC Morphology Not Reportable 07/08/17 08:28 Hypersegmented Neuts Not Reportable 07/08/17 08:28 Hyposegmented Neuts Not Reportable 07/08/17 08:28 Hypogranular Neuts Not Reportable 07/08/17 08:28 Smudge Cells Not Reportable 07/08/17 08:28 Toxic Granulation Not Reportable 07/08/17 08:28 Toxic Vacuolation Not Reportable 07/08/17 08:28 Dohle Bodies Not Reportable 07/08/17 08:28 Pelger-Huet Anomaly Not Reportable 07/08/17 08:28 Sharla Rods Not Reportable 07/08/17 08:28 Platelet Estimate Consistent w auto 07/08/17 08:28 Clumped Platelets Not Reportable 07/08/17 08:28 Plt Clumps, EDTA Not Reportable 07/08/17 08:28 Large Platelets Not Reportable 07/08/17 08:28 Giant Platelets Not Reportable 07/08/17 08:28 Platelet Satelliting Not Reportable 07/08/17 08:28 Plt Morphology Comment Not Reportable 07/08/17 08:28 RBC Morphology Normal 07/08/17 08:28 Dimorphic RBCs Not Reportable 07/08/17 08:28 Polychromasia Not Reportable 07/08/17 08:28 Hypochromasia Not Reportable 07/08/17 08:28 Poikilocytosis Not Reportable 07/08/17 08:28 Anisocytosis Not Reportable 07/08/17 08:28 Microcytosis Not Reportable 07/08/17 08:28 Macrocytosis Not Reportable 07/08/17 08:28 Spherocytes Not Reportable 07/08/17 08:28 Pappenheimer Bodies Not Reportable 07/08/17 08:28 Sickle Cells Not Reportable 07/08/17 08:28 Target Cells Not Reportable 07/08/17 08:28 Tear Drop Cells Not Reportable 07/08/17 08:28 Ovalocytes Not Reportable 07/08/17 08:28 Helmet Cells Not Reportable 07/08/17 08:28 [place] Bodies Not Reportable 07/08/17 08:28 [place] Rings Not Reportable 07/08/17 08:28 [place] Cells Not Reportable 07/08/17 08:28 Bite Cells Not Reportable 07/08/17 08:28 Crenated Cell Not Reportable 07/08/17 08:28 Elliptocytes Not Reportable 07/08/17 08:28 Acanthocytes (Spur) Not Reportable 07/08/17 08:28 Rouleaux Not Reportable 07/08/17 08:28 Hemoglobin C Crystals Not Reportable 07/08/17 08:28 Schistocytes Not Reportable 07/08/17 08:28 Malaria parasites Not Reportable 07/08/17 08:28 Moises Bodies Not Reportable 07/08/17 08:28 Hem Pathologist Commnt No 07/08/17 08:28 PT 16.7 Sec. (12.2-14.9) H 07/07/17 13:58 INR 1.29 (0.87-1.13) H 07/07/17 13:58 Sodium 138 mmol/L (137-145) 07/08/17 08:28 Potassium 3.5 mmol/L (3.6-5.0) L D 07/08/17 08:28 Chloride 95.5 mmol/L (98-107) L 07/08/17 08:28 Carbon Dioxide 32 mmol/L (22-30) H 07/08/17 08:28 Anion Gap 14 mmol/L 07/08/17 08:28 BUN 12 mg/dL (7-17) 07/08/17 08:28 Creatinine 0.8 mg/dL (0.7-1.2) 07/08/17 08:28 Estimated GFR > 60 ml/min 07/08/17 08:28 BUN/Creatinine Ratio 15 % 07/08/17 08:28 Glucose 227 mg/dL (65-100) H 07/08/17 08:28 POC Glucose 169 (70-105) H 07/08/17 11:37 Lactic Acid 5.00 mmol/L (0.7-2.0) H* 07/07/17 20:53 Calcium 7.0 mg/dL (8.4-10.2) L 07/08/17 08:28 Magnesium 1.10 mg/dL (1.7-2.3) L 07/07/17 13:58 Total Bilirubin 0.60 mg/dL (0.1-1.2) 07/07/17 13:58 AST 17 units/L (5-40) 07/07/17 13:58 ALT 7 units/L (7-56) 07/07/17 13:58 Alkaline Phosphatase 62 units/L (35-129) 07/07/17 13:58 Total Protein 6.0 g/dL (6.3-8.2) L 07/07/17 13:58 Albumin 2.9 g/dL (3.9-5) L 07/07/17 13:58 Albumin/Globulin Ratio 0.9 % 07/07/17 13:58 Urine Color Yellow (Yellow) 07/07/17 15:30 Urine Turbidity Clear (Clear) 07/07/17 15:30 Urine pH 6.0 (5.0-7.0) 07/07/17 15:30 Ur Specific [place] 1.016 (1.003-1.030) 07/07/17 15:30 Urine Protein 30 mg/dl mg/dL (Negative) 07/07/17 15:30 Urine Glucose (UA) 50 mg/dL (Negative) 07/07/17 15:30 Urine Ketones Neg mg/dL (Negative) 07/07/17 15:30 Urine Blood Neg (Negative) 07/07/17 15:30 Urine Nitrite Neg (Negative) 07/07/17 15:30 Urine Bilirubin Neg (Negative) 07/07/17 15:30 Urine Urobilinogen < 2.0 mg/dL (<2.0) 07/07/17 15:30 Ur Leukocyte Esterase Sm (Negative) 07/07/17 15:30 Urine WBC (Auto) 5.0 /HPF (0.0-6.0) 07/07/17 15:30 Urine RBC (Auto) 3.0 /HPF (0.0-6.0) 07/07/17 15:30 U Epithel Cells (Auto) 2.0 /HPF (0-13.0) 07/07/17 15:30 Urine Bacteria (Auto) 1+ /HPF (Negative) 07/07/17 15:30 Urine Mucus Few /HPF 07/07/17 15:30 <AUGUSTO LUGO M - Last Filed: 08/17/17 11:38> Hospitalist Physical - Constitutional Vitals: Temp Pulse Resp BP Pulse Ox 97.4 F L 87 20 132/58 97 07/10/17 09:00 07/10/17 14:02 07/10/17 14:02 07/10/17 09:47 07/10/17 10:00 Results - Labs CBC & Chem 7: 07/09/17 04:26 07/09/17 04:26 Labs: Laboratory Last Values WBC 14.5 K/mm3 (4.5-11.0) H 07/09/17 04:26 RBC 3.97 M/mm3 (3.65-5.03) 07/09/17 04:26 Hgb 11.4 gm/dl (10.1-14.3) 07/09/17 04:26 Hct 34.5 % (30.3-42.9) 07/09/17 04:26 MCV 87 fl (79-97) 07/09/17 04:26 MCH 29 pg (28-32) 07/09/17 04:26 MCHC 33 % (30-34) 07/09/17 04:26 RDW 13.5 % (13.2-15.2) 07/09/17 04:26 Plt Count 312 K/mm3 (140-440) 07/09/17 04:26 Lymph % (Auto) 4.6 % (13.4-35.0) L 07/07/17 13:58 [place] % (Auto) 7.9 % (0.0-7.3) H 07/07/17 13:58 Eos % (Auto) 0.1 % (0.0-4.3) 07/07/17 13:58 Baso % (Auto) 0.3 % (0.0-1.8) 07/07/17 13:58 Lymph # 0.5 K/mm3 (1.2-5.4) L 07/07/17 13:58 [place] # 0.9 K/mm3 (0.0-0.8) H 07/07/17 13:58 Eos # 0.0 K/mm3 (0.0-0.4) 07/07/17 13:58 Baso # 0.0 K/mm3 (0.0-0.1) 07/07/17 13:58 Add Manual Diff Complete 07/09/17 04:26 Total Counted 100 07/09/17 04:26 Seg Neutrophils % Front Desk Team Member 07/09/17 04:26 Seg Neuts % (Manual) 90.0 % (40.0-70.0) H 07/09/17 04:26 Band Neutrophils % 5.0 % 07/09/17 04:26 Lymphocytes % (Manual) 4.0 % (13.4-35.0) L 07/09/17 04:26 Reactive Lymphs % (Man) 0 % 07/09/17 04:26 Monocytes % (Manual) 1.0 % (0.0-7.3) 07/09/17 04:26 Eosinophils % (Manual) 0 % (0.0-4.3) 07/09/17 04:26 Basophils % (Manual) 0 % (0.0-1.8) 07/09/17 04:26 Metamyelocytes % 0 % 07/09/17 04:26 Myelocytes % 0 % 07/09/17 04:26 Promyelocytes % 0 % 07/09/17 04:26 Blast Cells % 0 % 07/09/17 04:26 Nucleated RBC % Not Reportable 07/09/17 04:26 Seg Neutrophils # 9.4 K/mm3 (1.8-7.7) H 07/07/17 13:58 Seg Neutrophils # Man 13.1 K/mm3 (1.8-7.7) H 07/09/17 04:26 Band Neutrophils # 0.7 K/mm3 07/09/17 04:26 Lymphocytes # (Manual) 0.6 K/mm3 (1.2-5.4) L 07/09/17 04:26 Abs React Lymphs (Man) 0.0 K/mm3 07/09/17 04:26 Monocytes # (Manual) 0.1 K/mm3 (0.0-0.8) 07/09/17 04:26 Eosinophils # (Manual) 0.0 K/mm3 (0.0-0.4) 07/09/17 04:26 Basophils # (Manual) 0.0 K/mm3 (0.0-0.1) 07/09/17 04:26 Metamyelocytes # 0.0 K/mm3 07/09/17 04:26 Myelocytes # 0.0 K/mm3 07/09/17 04:26 Promyelocytes # 0.0 K/mm3 07/09/17 04:26 Blast Cells # 0.0 K/mm3 07/09/17 04:26 WBC Morphology Not Reportable 07/09/17 04:26 Hypersegmented Neuts Not Reportable 07/09/17 04:26 Hyposegmented Neuts Not Reportable 07/09/17 04:26 Hypogranular Neuts Not Reportable 07/09/17 04:26 Smudge Cells Not Reportable 07/09/17 04:26 Toxic Granulation Not Reportable 07/09/17 04:26 Toxic Vacuolation Not Reportable 07/09/17 04:26 Dohle Bodies Not Reportable 07/09/17 04:26 Pelger-Huet Anomaly Not Reportable 07/09/17 04:26 Sharla Rods Not Reportable 07/09/17 04:26 Platelet Estimate Consistent w auto 07/09/17 04:26 Clumped Platelets Not Reportable 07/09/17 04:26 Plt Clumps, EDTA Not Reportable 07/09/17 04:26 Large Platelets Not Reportable 07/09/17 04:26 Giant Platelets Not Reportable 07/09/17 04:26 Platelet Satelliting Not Reportable 07/09/17 04:26 Plt Morphology Comment Not Reportable 07/09/17 04:26 RBC Morphology Not Reportable 07/09/17 04:26 Dimorphic RBCs Not Reportable 07/09/17 04:26 Polychromasia Not Reportable 07/09/17 04:26 Hypochromasia Not Reportable 07/09/17 04:26 Poikilocytosis Not Reportable 07/09/17 04:26 Anisocytosis 1+ 07/09/17 04:26 Microcytosis Not Reportable 07/09/17 04:26 Macrocytosis Not Reportable 07/09/17 04:26 Spherocytes Not Reportable 07/09/17 04:26 Pappenheimer Bodies Not Reportable 07/09/17 04:26 Sickle Cells Not Reportable 07/09/17 04:26 Target Cells Not Reportable 07/09/17 04:26 Tear Drop Cells Not Reportable 07/09/17 04:26 Ovalocytes Not Reportable 07/09/17 04:26 Helmet Cells Not Reportable 07/09/17 04:26 [place] Bodies Not Reportable 07/09/17 04:26 [place] Rings Not Reportable 07/09/17 04:26 [place] Cells Not Reportable 07/09/17 04:26 Bite Cells Not Reportable 07/09/17 04:26 Crenated Cell Not Reportable 07/09/17 04:26 Elliptocytes Few 07/09/17 04:26 Acanthocytes (Spur) Not Reportable 07/09/17 04:26 Rouleaux Not Reportable 07/09/17 04:26 Hemoglobin C Crystals Not Reportable 07/09/17 04:26 Schistocytes Not Reportable 07/09/17 04:26 Malaria parasites Not Reportable 07/09/17 04:26 Moises Bodies Not Reportable 07/09/17 04:26 Hem Pathologist Commnt No 07/09/17 04:26 PT 16.7 Sec. (12.2-14.9) H 07/07/17 13:58 INR 1.29 (0.87-1.13) H 07/07/17 13:58 Sodium 135 mmol/L (137-145) L 07/09/17 04:26 Potassium 4.5 mmol/L (3.6-5.0) D 07/09/17 04:26 Chloride 93.8 mmol/L (98-107) L 07/09/17 04:26 Carbon Dioxide 30 mmol/L (22-30) 07/09/17 04:26 Anion Gap 16 mmol/L 07/09/17 04:26 BUN 15 mg/dL (7-17) 07/09/17 04:26 Creatinine 0.8 mg/dL (0.7-1.2) 07/09/17 04:26 Estimated GFR > 60 ml/min 07/09/17 04:26 BUN/Creatinine Ratio 19 % 07/09/17 04:26 Glucose 188 mg/dL (65-100) H 07/09/17 04:26 POC Glucose 213 (70-105) H 07/10/17 11:41 Lactic Acid 1.40 mmol/L (0.7-2.0) 07/08/17 14:55 Calcium 6.8 mg/dL (8.4-10.2) L 07/09/17 04:26 Magnesium 1.90 mg/dL (1.7-2.3) 07/10/17 04:15 Total Bilirubin 0.60 mg/dL (0.1-1.2) 07/07/17 13:58 AST 17 units/L (5-40) 07/07/17 13:58 ALT 7 units/L (7-56) 07/07/17 13:58 Alkaline Phosphatase 62 units/L (35-129) 07/07/17 13:58 Total Protein 6.0 g/dL (6.3-8.2) L 07/07/17 13:58 Albumin 2.9 g/dL (3.9-5) L 07/07/17 13:58 Albumin/Globulin Ratio 0.9 % 07/07/17 13:58 Urine Color Yellow (Yellow) 07/07/17 15:30 Urine Turbidity Clear (Clear) 07/07/17 15:30 Urine pH 6.0 (5.0-7.0) 07/07/17 15:30 Ur Specific [place] 1.016 (1.003-1.030) 07/07/17 15:30 Urine Protein 30 mg/dl mg/dL (Negative) 07/07/17 15:30 Urine Glucose (UA) 50 mg/dL (Negative) 07/07/17 15:30 Urine Ketones Neg mg/dL (Negative) 07/07/17 15:30 Urine Blood Neg (Negative) 07/07/17 15:30 Urine Nitrite Neg (Negative) 07/07/17 15:30 Urine Bilirubin Neg (Negative) 07/07/17 15:30 Urine Urobilinogen < 2.0 mg/dL (<2.0) 07/07/17 15:30 Ur Leukocyte Esterase Sm (Negative) 07/07/17 15:30 Urine WBC (Auto) 5.0 /HPF (0.0-6.0) 07/07/17 15:30 Urine RBC (Auto) 3.0 /HPF (0.0-6.0) 07/07/17 15:30 U Epithel Cells (Auto) 2.0 /HPF (0-13.0) 07/07/17 15:30 Urine Bacteria (Auto) 1+ /HPF (Negative) 07/07/17 15:30 Urine Mucus Few /HPF 07/07/17 15:30
[2017-07-08] MEDS: ZITHROMAX 500 MG in NACL 0.9% 250ML 250 ML IV SCH (15:28)
[2017-07-08] MEDS: NACL 0.9% 1000 ML 1,000 ML IV SCH (15:29)
[2017-07-08] MEDS ORDERED: K-DUR PO ONE (16:00)
[2017-07-08] MEDS: XANAX PO PRN (21:55)
[2017-07-08] MEDS: NEURONTIN PO SCH (21:56)
[2017-07-08] MEDS: LEVEMIR SUB-Q SCH (21:57)
[2017-07-09] MEDS: NOVOLOG SUB-Q SCH ×5 (01:23→22:00)
[2017-07-09] MEDS: DUONEB *Not for PRN Use IH SCH ×4 (02:06→21:19)
[2017-07-09 04:38] LABS: Hematocrit 34.5 % (30.3-42.9); Hemoglobin 11.4 gm/dl (10.1-14.3); Mean Corpuscular HGB Conc 33 % (30-34); Mean Corpuscular Hemoglobin 29 pg (28-32); Mean Corpuscular Volume 87 fl (79-97); Platelet Count 312 K/mm3 (140-440); Red Blood Count 3.97 M/mm3 (3.65-5.03); Red Cell Distribution Width 13.5 % (13.2-15.2); White Blood Count 14.5 K/mm3 (4.5-11.0)
[2017-07-09 04:50] LABS: Anion Gap 16 mmol/L; BUN/Creatinine Ratio 19; Blood Urea Nitrogen 15 mg/dL (7-17); Calcium 6.8 mg/dL (8.4-10.2); Carbon Dioxide 30 mmol/L (22-30); Chloride 93.8 mmol/L (98-107); Glucose 188 mg/dL (65-100); Sodium 135 mmol/L (137-145)
[2017-07-09 04:57] LABS: Potassium 4.5 mmol/L (3.6-5.0)
[2017-07-09 05:40] LABS: Basophils % (Manual) 0 % (0.0-1.8); Blastocytes % (Manual) 0 %; Eosinophils % (Manual) 0 % (0.0-4.3)
[2017-07-09 05:41] LABS: Anisocytosis 1+; Diff Status Complete; Elliptocytes Few; Platelet Estimate Consistent w Auto
[2017-07-09] MEDS: NACL 0.9% 1000 ML 1,000 ML IV SCH (08:12)
[2017-07-09] MEDS ORDERED: ZITHROMAX PO SCH (10:00)
--- NOTE | 2017-07-09 10:50 | Discharge Summary ---
Providers - Providers Date of Admission: 07/07/17 19:25 Attending physician: AUGUSTO LUGO MD 07/07/17 17:19 Consult to Physician [CONS] Urgent Consulting Provider: NATHALIE JESUS Reason For Exam: copd pna Notified:: yes Primary care physician: FABRICATION LEAD Hospitalization Condition: Good Hospital course: Patient is a 77-year-old female presents to the ER with a complaint of cough, wheezing, shortness of breath, cw with COPD exacerbation. She was treated with supplemental oxygen, steroids and nebulizer, antibiotics. She received pulmonology consultation. She clinically improved. Her electrolytes were repleted. Physical evaluated for home oxygen and found to hypoxic especially with activity. Home oxygen was set up prior to discharge. Discharge diagnoses Acute respiratory failure with hypoxia Acute COPD exacerbation Hypokalemia Diabetes mellitus Chronic a-fib with hypercoagulable states Hypertension Hypomagnesemia Disposition: - TO HOME OR SELFCARE Time spent for discharge: 33 minutes Core Measure Documentation - Palliative Care Palliative Care/ Comfort Measures: Not Applicable - Core Measures Any of the following diagnoses?: none Exam - Constitutional Vitals: Temp Pulse Resp BP Pulse Ox 97.8 F 87 18 118/60 96 07/09/17 08:14 07/09/17 08:14 07/09/17 08:14 07/09/17 08:14 07/09/17 08:14 General appearance: Present: no acute distress, well-nourished - EENT Eyes: Present: PERRL ENT: hearing intact, clear oral mucosa - Neck Neck: Present: supple, normal ROM - Respiratory Respiratory effort: normal Respiratory: bilateral: CTA - Cardiovascular Heart Sounds: Present: S1 & S2. Absent: rub, click - Extremities Extremities: pulses symmetrical, No edema Peripheral Pulses: within normal limits - Abdominal General gastrointestinal: Present: soft, non-tender, non-distended, normal bowel sounds Female genitourinary: Present: normal - Integumentary Integumentary: Present: clear, warm, dry - Musculoskeletal Musculoskeletal: gait normal, strength equal bilaterally - Psychiatric Psychiatric: appropriate mood/affect, intact judgment & insight - Neurologic Neurologic: CNII-XII intact, moves all extremities Plan Follow up with: PRIMARY CARE, [Primary Care Provider] - 3-5 Days Prescriptions: ALBUTEROL Inhaler [ProAir HFA Inhaler] 2 puff IH QID PRN #1 inhalation PRN Reason: Shortness Of Breath ALPRAZolam [Xanax TAB] 0.25 mg PO Q12H PRN #14 tablet PRN Reason: Anxiety Azithromycin [Zithromax TAB] 250 mg PO QDAY #5 tablet Budesonide/Formoterol Fumarate [Symbicort 80-4.5 Mcg Inhaler] 10.2 gm IH BID #1 hfa.aer.ad Prednisone [predniSONE 10 mg (6-Day Pack, 21 Tabs)] 10 mg PO .TAPER #1 tab.ds.pk Tiotropium [place] [Spiriva Respimat] 4 gm IH DAILY #1 mist.inhal
[2017-07-09] MEDS: ELIQUIS PO SCH ×2 (10:53→23:04)
[2017-07-09] MEDS: DIOVAN PO SCH (11:00)
[2017-07-09] MEDS: HCTZ PO SCH (11:00)
[2017-07-09] MEDS: LOPRESSOR PO SCH ×2 (11:00→22:00)
[2017-07-09] MEDS: PROCARDIA XL PO SCH (11:03)
[2017-07-09] MEDS: XANAX PO PRN (11:04)
[2017-07-09] MEDS: cefTRIAXone 2 GM in NACL 0.9% 20 ML IV SCH (11:18)
--- NOTE | 2017-07-09 11:30 | Progress Note ---
Assessment and Plan - Patient Problems (1) COPD exacerbation Current Visit: Yes Status: Acute (2) Pneumonia of both lower lobes Current Visit: Yes Status: Acute Qualifiers: Aspiration pneumonia type: unspecified Subjective Interval history: Feels better, still sob and wheezing Objective Vital Signs - 12hr 07/09/17 07/09/17 07/09/17 02:08 02:17 05:44 Temperature 97.2 F L Pulse Rate 85 Pulse Rate [ 81 86 Anterior Bilateral Throughout] Respiratory 18 Rate Respiratory 16 16 Rate [Anterior Bilateral Throughout] Blood Pressure 108/48 Blood Pressure [Left] O2 Sat by Pulse 96 Oximetry 07/09/17 07/09/17 07/09/17 07:09 07:44 07:54 Temperature Pulse Rate 74 Pulse Rate [ 84 86 Anterior Bilateral Throughout] Respiratory Rate Respiratory 18 18 Rate [Anterior Bilateral Throughout] Blood Pressure Blood Pressure [Left] O2 Sat by Pulse 95 Oximetry 07/09/17 07/09/17 08:14 11:00 Temperature 97.8 F Pulse Rate 87 87 Pulse Rate [ Anterior Bilateral Throughout] Respiratory 18 Rate Respiratory Rate [Anterior Bilateral Throughout] Blood Pressure 118/60 Blood Pressure 118/60 [Left] O2 Sat by Pulse 96 Oximetry Constitutional: no acute distress, alert Eyes: non-icteric ENT: oropharynx moist Neck: supple Effort: normal Ascultation: Bilateral: wheezes (bases) Cardiovascular: regular rate and rhythm (no mrg) Gastrointestinal: normoactive bowel sounds, soft, non-tender, non-distended Integumentary: normal Extremities: no cyanosis, no edema, pink and warm Neurologic: normal mental status, non-focal exam, pupils equal and round, CN II- XII normal Psychiatric: mood appropriate, affect normal CBC and BMP: 07/09/17 04:26 07/09/17 04:26 ABG, PT/INR, D-dimer: PT/INR, D-dimer PT 16.7 Sec. (12.2-14.9) H 07/07/17 13:58 INR 1.29 (0.87-1.13) H 07/07/17 13:58 Abnormal lab findings: Abnormal Labs 07/07/17 07/07/17 07/07/17 13:58 13:58 13:58 WBC Lymph % (Auto) 4.6 L [place] % (Auto) 7.9 H Lymph # 0.5 L [place] # 0.9 H Seg Neutrophils % 87.1 H Seg Neuts % (Manual) Lymphocytes % (Manual) Seg Neutrophils # 9.4 H Seg Neutrophils # Man Lymphocytes # (Manual) PT 16.7 H INR 1.29 H Sodium 135 L Potassium 2.7 L* Chloride 86.8 L Carbon Dioxide 32 H Glucose 177 H POC Glucose Lactic Acid Calcium 7.2 L Magnesium Total Protein 6.0 L Albumin 2.9 L 07/07/17 07/07/17 07/07/17 13:58 19:36 20:53 WBC Lymph % (Auto) [place] % (Auto) Lymph # [place] # Seg Neutrophils % Seg Neuts % (Manual) Lymphocytes % (Manual) Seg Neutrophils # Seg Neutrophils # Man Lymphocytes # (Manual) PT INR Sodium Potassium Chloride Carbon Dioxide Glucose POC Glucose Lactic Acid 3.40 H* 5.00 H* Calcium Magnesium 1.10 L Total Protein Albumin 07/07/17 07/08/17 07/08/17 23:37 07:55 08:28 WBC Lymph % (Auto) [place] % (Auto) Lymph # [place] # Seg Neutrophils % Seg Neuts % (Manual) Lymphocytes % (Manual) Seg Neutrophils # Seg Neutrophils # Man Lymphocytes # (Manual) PT INR Sodium Potassium 3.5 L D Chloride 95.5 L Carbon Dioxide 32 H Glucose 227 H POC Glucose 292 H 156 H Lactic Acid Calcium 7.0 L Magnesium Total Protein Albumin 07/08/17 07/08/17 07/08/17 08:28 11:37 16:37 WBC Lymph % (Auto) [place] % (Auto) Lymph # [place] # Seg Neutrophils % Seg Neuts % (Manual) 92.0 H Lymphocytes % (Manual) 6.0 L Seg Neutrophils # Seg Neutrophils # Man Lymphocytes # (Manual) 0.5 L PT INR Sodium Potassium Chloride Carbon Dioxide Glucose POC Glucose 169 H 152 H Lactic Acid Calcium Magnesium Total Protein Albumin 07/08/17 07/09/17 07/09/17 22:05 04:26 04:26 WBC 14.5 H Lymph % (Auto) [place] % (Auto) Lymph # [place] # Seg Neutrophils % Seg Neuts % (Manual) 90.0 H Lymphocytes % (Manual) 4.0 L Seg Neutrophils # Seg Neutrophils # Man 13.1 H Lymphocytes # (Manual) 0.6 L PT INR Sodium 135 L Potassium Chloride 93.8 L Carbon Dioxide Glucose 188 H POC Glucose 224 H Lactic Acid Calcium 6.8 L Magnesium 1.20 L Total Protein Albumin 07/09/17 08:13 WBC Lymph % (Auto) [place] % (Auto) Lymph # [place] # Seg Neutrophils % Seg Neuts % (Manual) Lymphocytes % (Manual) Seg Neutrophils # Seg Neutrophils # Man Lymphocytes # (Manual) PT INR Sodium Potassium Chloride Carbon Dioxide Glucose POC Glucose 178 H Lactic Acid Calcium Magnesium Total Protein Albumin
[2017-07-09] MEDS ORDERED: MAGNESIUM SULFATE 4GM/100ML 4 GM/100 ML BAG IV ONE (12:01)
--- NOTE | 2017-07-09 16:59 | Progress Note ---
Assessment and Plan Assessment and plan: Patient is a 77-year-old female presents to the ER with a complaint of cough, wheezing, shortness of breath, cw with COPD exacerbation Acute respiratory failure with hypoxia Continue supplemental oxygen, will be discharged home on home oxygen Acute COPD exacerbation Continue IV steroids, aggressive nebulizer treatments and antibiotics Case discussed with patient companion, Case discussed with case management. Home oxygen has been organized. Hypokalemia Supplemented Closely monitor electrolytes Diabetes mellitus Accu-Chek before meals and at bedtime Sliding scale insulin/NovoLog ADA carbohydrate consistent diet Chronic a-fib with hypercoagulable states continue Eliquis, continue rate control medicines Hypertension Continue home antihypertensives medications Closely monitor BP Hypomagnesemia -replete IV DVT prophylaxis on Eliquis History Interval history: States that shortness of breath and wheezing is improved. She did have some dyspnea on exertion. Discussed with the RN, patient desaturated when walking. Review of systems Constitutional: No fevers, no malaise, no joint pains CVS: No chest pain, no orthopnea, , no pedal edema GI: No abdominal pain, no diarrhea, no vomiting, no constipation Respiratory: admits shortness of breath, dyspnea on exertion and wheezing Hospitalist Physical - Physical exam Narrative exam: General.: Appears well, no distress, nontoxic HEENT: Moist mucous membranes, extraocular muscles intact, no lymphadenopathy, scalp alopecia Neck: supple Cardiac: S1-S2 heard Lungs: Decreased air entry, expiratory wheezing Abdomen: soft , nontender, nondistended, bowel sounds positive Extremities: no edema clubbing or cyanosis Skin: no rash or lesions Neurologic: no gross focal deficits Psych: appropriate behavior, appropriate mood, corporative, judgment intact - Constitutional Vitals: Temp Pulse Resp BP Pulse Ox 97.8 F 100 H 20 118/60 96 07/09/17 08:14 07/09/17 14:10 07/09/17 14:10 07/09/17 11:00 07/09/17 10:00 General appearance: Present: mild distress, well-nourished Results - Labs CBC & Chem 7: 07/09/17 04:26 07/09/17 04:26 Labs: Laboratory Last Values WBC 14.5 K/mm3 (4.5-11.0) H 07/09/17 04:26 RBC 3.97 M/mm3 (3.65-5.03) 07/09/17 04:26 Hgb 11.4 gm/dl (10.1-14.3) 07/09/17 04:26 Hct 34.5 % (30.3-42.9) 07/09/17 04:26 MCV 87 fl (79-97) 07/09/17 04:26 MCH 29 pg (28-32) 07/09/17 04:26 MCHC 33 % (30-34) 07/09/17 04:26 RDW 13.5 % (13.2-15.2) 07/09/17 04:26 Plt Count 312 K/mm3 (140-440) 07/09/17 04:26 Lymph % (Auto) 4.6 % (13.4-35.0) L 07/07/17 13:58 [place] % (Auto) 7.9 % (0.0-7.3) H 07/07/17 13:58 Eos % (Auto) 0.1 % (0.0-4.3) 07/07/17 13:58 Baso % (Auto) 0.3 % (0.0-1.8) 07/07/17 13:58 Lymph # 0.5 K/mm3 (1.2-5.4) L 07/07/17 13:58 [place] # 0.9 K/mm3 (0.0-0.8) H 07/07/17 13:58 Eos # 0.0 K/mm3 (0.0-0.4) 07/07/17 13:58 Baso # 0.0 K/mm3 (0.0-0.1) 07/07/17 13:58 Add Manual Diff Complete 07/09/17 04:26 Total Counted 100 07/09/17 04:26 Seg Neutrophils % [employer] 07/09/17 04:26 Seg Neuts % (Manual) 90.0 % (40.0-70.0) H 07/09/17 04:26 Band Neutrophils % 5.0 % 07/09/17 04:26 Lymphocytes % (Manual) 4.0 % (13.4-35.0) L 07/09/17 04:26 Reactive Lymphs % (Man) 0 % 07/09/17 04:26 Monocytes % (Manual) 1.0 % (0.0-7.3) 07/09/17 04:26 Eosinophils % (Manual) 0 % (0.0-4.3) 07/09/17 04:26 Basophils % (Manual) 0 % (0.0-1.8) 07/09/17 04:26 Metamyelocytes % 0 % 07/09/17 04:26 Myelocytes % 0 % 07/09/17 04:26 Promyelocytes % 0 % 07/09/17 04:26 Blast Cells % 0 % 07/09/17 04:26 Nucleated RBC % Not Reportable 07/09/17 04:26 Seg Neutrophils # 9.4 K/mm3 (1.8-7.7) H 07/07/17 13:58 Seg Neutrophils # Man 13.1 K/mm3 (1.8-7.7) H 07/09/17 04:26 Band Neutrophils # 0.7 K/mm3 07/09/17 04:26 Lymphocytes # (Manual) 0.6 K/mm3 (1.2-5.4) L 07/09/17 04:26 Abs React Lymphs (Man) 0.0 K/mm3 07/09/17 04:26 Monocytes # (Manual) 0.1 K/mm3 (0.0-0.8) 07/09/17 04:26 Eosinophils # (Manual) 0.0 K/mm3 (0.0-0.4) 07/09/17 04:26 Basophils # (Manual) 0.0 K/mm3 (0.0-0.1) 07/09/17 04:26 Metamyelocytes # 0.0 K/mm3 07/09/17 04:26 Myelocytes # 0.0 K/mm3 07/09/17 04:26 Promyelocytes # 0.0 K/mm3 07/09/17 04:26 Blast Cells # 0.0 K/mm3 07/09/17 04:26 WBC Morphology Not Reportable 07/09/17 04:26 Hypersegmented Neuts Not Reportable 07/09/17 04:26 Hyposegmented Neuts Not Reportable 07/09/17 04:26 Hypogranular Neuts Not Reportable 07/09/17 04:26 Smudge Cells Not Reportable 07/09/17 04:26 Toxic Granulation Not Reportable 07/09/17 04:26 Toxic Vacuolation Not Reportable 07/09/17 04:26 Dohle Bodies Not Reportable 07/09/17 04:26 Pelger-Huet Anomaly Not Reportable 07/09/17 04:26 Sharla Rods Not Reportable 07/09/17 04:26 Platelet Estimate Consistent w auto 07/09/17 04:26 Clumped Platelets Not Reportable 07/09/17 04:26 Plt Clumps, EDTA Not Reportable 07/09/17 04:26 Large Platelets Not Reportable 07/09/17 04:26 Giant Platelets Not Reportable 07/09/17 04:26 Platelet Satelliting Not Reportable 07/09/17 04:26 Plt Morphology Comment Not Reportable 07/09/17 04:26 RBC Morphology Not Reportable 07/09/17 04:26 Dimorphic RBCs Not Reportable 07/09/17 04:26 Polychromasia Not Reportable 07/09/17 04:26 Hypochromasia Not Reportable 07/09/17 04:26 Poikilocytosis Not Reportable 07/09/17 04:26 Anisocytosis 1+ 07/09/17 04:26 Microcytosis Not Reportable 07/09/17 04:26 Macrocytosis Not Reportable 07/09/17 04:26 Spherocytes Not Reportable 07/09/17 04:26 Pappenheimer Bodies Not Reportable 07/09/17 04:26 Sickle Cells Not Reportable 07/09/17 04:26 Target Cells Not Reportable 07/09/17 04:26 Tear Drop Cells Not Reportable 07/09/17 04:26 Ovalocytes Not Reportable 07/09/17 04:26 Helmet Cells Not Reportable 07/09/17 04:26 [place] Bodies Not Reportable 07/09/17 04:26 [place] Rings Not Reportable 07/09/17 04:26 [place] Cells Not Reportable 07/09/17 04:26 Bite Cells Not Reportable 07/09/17 04:26 Crenated Cell Not Reportable 07/09/17 04:26 Elliptocytes Few 07/09/17 04:26 Acanthocytes (Spur) Not Reportable 07/09/17 04:26 Rouleaux Not Reportable 07/09/17 04:26 Hemoglobin C Crystals Not Reportable 07/09/17 04:26 Schistocytes Not Reportable 07/09/17 04:26 Malaria parasites Not Reportable 07/09/17 04:26 [place] Bodies Not Reportable 07/09/17 04:26 Hem Pathologist Commnt No 07/09/17 04:26 PT 16.7 Sec. (12.2-14.9) H 07/07/17 13:58 INR 1.29 (0.87-1.13) H 07/07/17 13:58 Sodium 135 mmol/L (137-145) L 07/09/17 04:26 Potassium 4.5 mmol/L (3.6-5.0) D 07/09/17 04:26 Chloride 93.8 mmol/L (98-107) L 07/09/17 04:26 Carbon Dioxide 30 mmol/L (22-30) 07/09/17 04:26 Anion Gap 16 mmol/L 07/09/17 04:26 BUN 15 mg/dL (7-17) 07/09/17 04:26 Creatinine 0.8 mg/dL (0.7-1.2) 07/09/17 04:26 Estimated GFR > 60 ml/min 07/09/17 04:26 BUN/Creatinine Ratio 19 % 07/09/17 04:26 Glucose 188 mg/dL (65-100) H 07/09/17 04:26 POC Glucose 254 (70-105) H 07/09/17 11:37 Lactic Acid 1.40 mmol/L (0.7-2.0) 07/08/17 14:55 Calcium 6.8 mg/dL (8.4-10.2) L 07/09/17 04:26 Magnesium 1.20 mg/dL (1.7-2.3) L 07/09/17 04:26 Total Bilirubin 0.60 mg/dL (0.1-1.2) 07/07/17 13:58 AST 17 units/L (5-40) 07/07/17 13:58 ALT 7 units/L (7-56) 07/07/17 13:58 Alkaline Phosphatase 62 units/L (35-129) 07/07/17 13:58 Total Protein 6.0 g/dL (6.3-8.2) L 07/07/17 13:58 Albumin 2.9 g/dL (3.9-5) L 07/07/17 13:58 Albumin/Globulin Ratio 0.9 % 07/07/17 13:58 Urine Color Yellow (Yellow) 07/07/17 15:30 Urine Turbidity Clear (Clear) 07/07/17 15:30 Urine pH 6.0 (5.0-7.0) 07/07/17 15:30 Ur Specific [place] 1.016 (1.003-1.030) 07/07/17 15:30 Urine Protein 30 mg/dl mg/dL (Negative) 07/07/17 15:30 Urine Glucose (UA) 50 mg/dL (Negative) 07/07/17 15:30 Urine Ketones Neg mg/dL (Negative) 07/07/17 15:30 Urine Blood Neg (Negative) 07/07/17 15:30 Urine Nitrite Neg (Negative) 07/07/17 15:30 Urine Bilirubin Neg (Negative) 07/07/17 15:30 Urine Urobilinogen < 2.0 mg/dL (<2.0) 07/07/17 15:30 Ur Leukocyte Esterase Sm (Negative) 07/07/17 15:30 Urine WBC (Auto) 5.0 /HPF (0.0-6.0) 07/07/17 15:30 Urine RBC (Auto) 3.0 /HPF (0.0-6.0) 07/07/17 15:30 U Epithel Cells (Auto) 2.0 /HPF (0-13.0) 07/07/17 15:30 Urine Bacteria (Auto) 1+ /HPF (Negative) 07/07/17 15:30 Urine Mucus Few /HPF 07/07/17 15:30
[2017-07-09] MEDS: NEURONTIN PO SCH (22:00)
[2017-07-09] MEDS: LEVEMIR SUB-Q SCH (23:08)
[2017-07-10] MEDS: DUONEB *Not for PRN Use IH SCH ×3 (02:51→13:51)
[2017-07-10] MEDS: NOVOLOG SUB-Q SCH ×2 (08:33→12:20)
[2017-07-10] MEDS: XANAX PO PRN (09:41)
[2017-07-10] MEDS: ELIQUIS PO SCH (09:42)
[2017-07-10] MEDS: cefTRIAXone 2 GM in NACL 0.9% 20 ML IV SCH (09:43)
[2017-07-10] MEDS: LOPRESSOR PO SCH (09:46)
[2017-07-10] MEDS: HCTZ PO SCH (09:46)
[2017-07-10] MEDS: DIOVAN PO SCH (09:47)
[2017-07-10] MEDS: PROCARDIA XL PO SCH (09:47)
[2017-07-10 09:48] VITALS: BP 132/58
[2017-07-10] MEDS ORDERED: ELIQUIS ONE (10:00)
--- NOTE | 2017-07-10 13:26 | Progress Note ---
Assessment and Plan - Patient Problems (1) COPD exacerbation Current Visit: Yes Status: Acute (2) Pneumonia of both lower lobes Current Visit: Yes Status: Acute Qualifiers: Aspiration pneumonia type: unspecified Objective Vital Signs - 12hr 07/10/17 07/10/17 07/10/17 02:00 03:01 08:30 Temperature Pulse Rate Pulse Rate [ 92 H 88 85 Anterior Bilateral Throughout] Pulse Rate [ From Monitor] Respiratory Rate Respiratory 15 17 20 Rate [Anterior Bilateral Throughout] Blood Pressure Blood Pressure [Left] O2 Sat by Pulse 95 Oximetry 07/10/17 07/10/17 07/10/17 08:40 09:00 09:46 Temperature 97.4 F L Pulse Rate 82 92 H Pulse Rate [ 89 Anterior Bilateral Throughout] Pulse Rate [ From Monitor] Respiratory 20 Rate Respiratory 20 Rate [Anterior Bilateral Throughout] Blood Pressure 132/58 Blood Pressure 132/56 [Left] O2 Sat by Pulse 95 Oximetry 07/10/17 07/10/17 09:47 10:00 Temperature Pulse Rate 92 H 80 Pulse Rate [ Anterior Bilateral Throughout] Pulse Rate [ 80 From Monitor] Respiratory 20 Rate Respiratory Rate [Anterior Bilateral Throughout] Blood Pressure 132/58 Blood Pressure [Left] O2 Sat by Pulse 97 Oximetry Constitutional: no acute distress, alert Eyes: non-icteric ENT: oropharynx moist Neck: supple Effort: normal Ascultation: Bilateral: wheezes (bases), rales (bases) Cardiovascular: regular rate and rhythm (no mrg) Gastrointestinal: normoactive bowel sounds, soft, non-tender, non-distended Integumentary: normal Extremities: no cyanosis, no edema, pink and warm Neurologic: normal mental status, non-focal exam, pupils equal and round, CN II- XII normal Psychiatric: mood appropriate, affect normal CBC and BMP: 07/09/17 04:26 07/09/17 04:26 ABG, PT/INR, D-dimer: PT/INR, D-dimer PT 16.7 Sec. (12.2-14.9) H 07/07/17 13:58 INR 1.29 (0.87-1.13) H 07/07/17 13:58 Abnormal lab findings: Abnormal Labs 07/07/17 07/07/17 07/07/17 13:58 13:58 13:58 WBC Lymph % (Auto) 4.6 L [place] % (Auto) 7.9 H Lymph # 0.5 L [place] # 0.9 H Seg Neutrophils % 87.1 H Seg Neuts % (Manual) Lymphocytes % (Manual) Seg Neutrophils # 9.4 H Seg Neutrophils # Man Lymphocytes # (Manual) PT 16.7 H INR 1.29 H Sodium 135 L Potassium 2.7 L* Chloride 86.8 L Carbon Dioxide 32 H Glucose 177 H POC Glucose Lactic Acid Calcium 7.2 L Magnesium Total Protein 6.0 L Albumin 2.9 L 07/07/17 07/07/17 07/07/17 13:58 19:36 20:53 WBC Lymph % (Auto) [place] % (Auto) Lymph # [place] # Seg Neutrophils % Seg Neuts % (Manual) Lymphocytes % (Manual) Seg Neutrophils # Seg Neutrophils # Man Lymphocytes # (Manual) PT INR Sodium Potassium Chloride Carbon Dioxide Glucose POC Glucose Lactic Acid 3.40 H* 5.00 H* Calcium Magnesium 1.10 L Total Protein Albumin 07/07/17 07/08/17 07/08/17 23:37 07:55 08:28 WBC Lymph % (Auto) [place] % (Auto) Lymph # [place] # Seg Neutrophils % Seg Neuts % (Manual) Lymphocytes % (Manual) Seg Neutrophils # Seg Neutrophils # Man Lymphocytes # (Manual) PT INR Sodium Potassium 3.5 L D Chloride 95.5 L Carbon Dioxide 32 H Glucose 227 H POC Glucose 292 H 156 H Lactic Acid Calcium 7.0 L Magnesium Total Protein Albumin 07/08/17 07/08/17 07/08/17 08:28 11:37 16:37 WBC Lymph % (Auto) [place] % (Auto) Lymph # [place] # Seg Neutrophils % Seg Neuts % (Manual) 92.0 H Lymphocytes % (Manual) 6.0 L Seg Neutrophils # Seg Neutrophils # Man Lymphocytes # (Manual) 0.5 L PT INR Sodium Potassium Chloride Carbon Dioxide Glucose POC Glucose 169 H 152 H Lactic Acid Calcium Magnesium Total Protein Albumin 07/08/17 07/09/17 07/09/17 22:05 04:26 04:26 WBC 14.5 H Lymph % (Auto) [place] % (Auto) Lymph # [place] # Seg Neutrophils % Seg Neuts % (Manual) 90.0 H Lymphocytes % (Manual) 4.0 L Seg Neutrophils # Seg Neutrophils # Man 13.1 H Lymphocytes # (Manual) 0.6 L PT INR Sodium 135 L Potassium Chloride 93.8 L Carbon Dioxide Glucose 188 H POC Glucose 224 H Lactic Acid Calcium 6.8 L Magnesium 1.20 L Total Protein Albumin 07/09/17 07/09/17 07/09/17 08:13 11:37 16:54 WBC Lymph % (Auto) [place] % (Auto) Lymph # [place] # Seg Neutrophils % Seg Neuts % (Manual) Lymphocytes % (Manual) Seg Neutrophils # Seg Neutrophils # Man Lymphocytes # (Manual) PT INR Sodium Potassium Chloride Carbon Dioxide Glucose POC Glucose 178 H 254 H 220 H Lactic Acid Calcium Magnesium Total Protein Albumin 07/09/17 07/10/17 21:21 11:41 WBC Lymph % (Auto) [place] % (Auto) Lymph # [place] # Seg Neutrophils % Seg Neuts % (Manual) Lymphocytes % (Manual) Seg Neutrophils # Seg Neutrophils # Man Lymphocytes # (Manual) PT INR Sodium Potassium Chloride Carbon Dioxide Glucose POC Glucose 257 H 213 H Lactic Acid Calcium Magnesium Total Protein Albumin
--- NOTE | 2017-07-14 16:54 | Query-Infection ---
Dear Christoph Date:___07/14/17 Mold Maker Apprentice/CDS: Nell / Renaldo Phone#:__[phone] Exercise your independent professional judgment when responding to this query. Questions asked do not imply a particular answer is desired or expected. We greatly appreciate your clarification on this issue. Clinical Documentation States: 77 year old female was admitted on 07/07/17 The H&P (Dr. Ordaz) states " Patient reports that she was recently diagnosed last week with pneumonia by her nuclear radiation engineer, and was treated empirically with azithromycin. She presents to the ER with worsening symptoms Assessment and Plan Patient Problems (1) Acute respiratory failure with hypoxia (2) SIRS (systemic inflammatory response syndrome) Sec to Ivan PNA (6) Pneumonia of both lower lobes " The Discharge summary (Dr. Hawthorne) states " Discharge diagnoses Acute respiratory failure with hypoxia Acute COPD exacerbation " WBC: 14.5 (07/09/17) Pulse: 110 Respiratory rate: 30 Clinical findings show: (please check applicable parameters) Infection, known /suspected, with some of the following indicators; Specify the infection: 3 General parameters [ ] Fever (core temp >38.30C or 100.40F) [ ] Hypothermia (core temp <36C) [ x] Heart rate >90 bpm [ x] Tachypnea: >20 bpm or pCO2 < 32 mmHg [ ] Altered mental status [ ] Significant edema / +ve fluid balance (>20 ml/kg 24 h) [ ] Hyperglycemia (Bl. glucose >110 mg/dl) w/o diabetes Inflammatory parameters [x ] Leukocytosis (white blood cell count >12,000/l) [ ] Leukopenia (white blood cell count <4,000/l) [ ] Bandemia (immature WBC > 10%) [ ] Leucocyte Left Shift [ ] Plasma procalcitonin>2 SD above the normal value Hemodynamic and tissue perfusion parameters [ ] Arterial hypotension(SBP <90 mmHg, MAP <70 mmHg,or a SBP drop >40 mmHg in adults) [ ] Hyperlactatemia (>3 mmol/l) [ ] Anion Gap (> 11mEG/l) [ ] Decreased capillary refill or mottling Organ dysfunction parameters [ ] Arterial hypoxemia (PaO2/FIO2 <300) [ ] Creatinine increase =0.5 mg/dl [ ] Acute oliguria (urine output <0.5 ml | kg |h or 45 mM/l for at least 2 hrs) [ ] Coagulation abnormalities (INR >1.5 or activated partial thromboplastin time >60 s) [ ] Ileus (absent red wel sounds) [ ] Thrombocytopenia (platelet count <100,000/l) [ ] Hyperbilirubinemia (plasma total bilirubin >4 mg/dl) According to the clinical indications above, can Bacteremia be further specified? If so, please indicate below and in your Progress Notes and/ or Discharge Summary. Indicate if the condition was present on admission. PHYSICIAN RESPONSE: [ ] Sepsis [ ] Severe Sepsis [ ] Septic Shock [ ] Septicemia [ ] Sepsis now resolved [ ] SIRS due to non-infectious cause with organ dysfunction [ x] SIRS due to non-infectious cause without organ dysfunction [ ] Other: [ ] Comment/Explanation: Present on Admission: [x ] Yes (Y) [ ] Clinically undeterminable (W) [ ] No (N) [ ] Ruled Out Please also document response in your Progress Notes and/or Discharge Summary and indicate if the condition was present on admission Notes: SIRS/ SIRS WITH ORGAN DYSFUNCTION Systemic inflammatory response syndrome (SIRS) generally refers to the systemic response to trauma/jaime or other insult such as Acute Myocardial Infarction, Acute Pancreatitis, and Major Surgery with symptoms including fever, tachycardia , tachypnea, and leukocytosis (1). BACTEREMIA Presence of viable bacteria in the circulating blood (2). This term is reserved for patients that do not manifest above SIRS response. SEPTICEMIA Generally refers to a systemic disease associated with the presence of pathological microorganisms or toxins in the blood, which can include bacteria, viruses, fungi or other organisms (1). SEPSIS Generally refers to SIRS due infection (1). SEVERE SEPSIS Generally refers to sepsis associated with acute organ dysfunction (1). SEPTIC SHOCK Generally refers to circulatory failure associated with severe sepsis (2), and defined as hypotension or hypoperfusion despite adequate fluid resuscitation (1 hour) (3). REFERENCES: 1. [place] [employer]/Society of Critical Care Medicine Consensus Conference. Definitions for sepsis and organ failure and guidelines for the use of innovative therapies in sepsis. Critical Care Med 1992;20:864 - 74. 2. Ry dixon MM, Cali MP, Manuel VARGAS, Mitchell E, Bennie D, Lowell D, Pepe J, Devika SM , Syed JL, Kendall G; International Sepsis Definitions Conference. 2000 SCCM/ESICM/ACCP/ATS/SIS International Sepsis Definitions Conference. Intensive Care Med. 2002 Apr;29(4):530-8. Epub 2002Nov 02. Review. PubMed PMID:[id number] 3. ICD-9-CM Official Guidelines for Coding and Reporting 4. Medscape Drugs, Diseases and Procedures references 5. [employer] Textbook of Internal Medicine. 18th Edition MTDD
== END 2017-07-10 15:50 | disposition home health service (06) | DRG 189 ==
LOC: ED 12:46 → 2B-ACE 19:25
PROVIDERS: ADMIT Internal Medicine; ATTEND Internal Medicine
DX: J96.01 Acute respiratory failure with hypoxia (principal); J18.1 Lobar pneumonia, unspecified organism; J44.1 Chronic obstructive pulmonary disease with (acute) exacerbation; R65.10 Systemic inflammatory response syndrome (SIRS) of non-infectious origin without acute organ dysfunction; J44.0 Chronic obstructive pulmonary disease with (acute) lower respiratory infection; E87.2 Acidosis; D68.59 Other primary thrombophilia; G89.29 Other chronic pain; M54.9 Dorsalgia, unspecified; I48.2 Chronic atrial fibrillation; E83.42 Hypomagnesemia; E87.6 Hypokalemia; E11.8 Type 2 diabetes mellitus with unspecified complications; Z79.01 Long term (current) use of anticoagulants; Z79.4 Long term (current) use of insulin; Z79.899 Other long term (current) drug therapy; Z88.6 Allergy status to analgesic agent; Z88.1 Allergy status to other antibiotic agents; Z88.0 Allergy status to penicillin; Z90.710 Acquired absence of both cervix and uterus; Z90.49 Acquired absence of other specified parts of digestive tract
CPT/HCPCS: 36415; 71010; 80048; 80053; 81001; 82140; 82962; 83735; 85007; 85025; 85610; 87040; 93005; 93010; 94640; 94760; 96365; 96375; J0456; J0696; J1815; J1818; J2920; J2930; J3475; J3480; J7030; J7040; J7050

== ENCOUNTER 2018-10-04 15:04 | Inpatient (IN) | payer MEDICARE, OTHER ==
[2018-10-04 16:34] LABS: Basophils # (Auto) 0.1 K/mm3 (0.0-0.1); Basophils % (Auto) 0.5 % (0.0-1.8); Eosinophils % (Auto) 0.2 % (0.0-4.3); Hematocrit 39.9 % (30.3-42.9); Hemoglobin 13.3 gm/dl (10.1-14.3); Lymphocytes # (Auto) 0.8 K/mm3 (1.2-5.4); Lymphocytes % (Auto) 5.4 % (13.4-35.0); Mean Corpuscular HGB Conc 33 % (30-34); Mean Corpuscular Volume 88 fl (79-97); Monocytes # (Auto) 1.1 K/mm3 (0.0-0.8); Monocytes % (Auto) 7.3 % (0.0-7.3); Platelet Count 251 K/mm3 (140-440); Red Blood Count 4.56 M/mm3 (3.65-5.03); Red Cell Distribution Width 13.6 % (13.2-15.2)
[2018-10-04 16:55] LABS: Albumin 3.7 g/dL (3.9-5); Calcium 8.9 mg/dL (8.4-10.2)
[2018-10-04] MEDS: ROCEPHIN/NS 2 GM/100 ML 2 GM/100 ML BAG IV SCH (16:57)
[2018-10-04] MEDS ORDERED: DUONEB *Not for PRN Use IH ONE (17:17)
[2018-10-04] MEDS ORDERED: SOLU-Medrol IV ONE (17:17)
--- NOTE | 2018-10-04 17:18 | Emergency Department Report ---
ED Shortness of Breath HPI - General Chief Complaint: Dyspnea/Respdistress Stated Complaint: OXYGEN LEVEL LOW Time Seen by Provider: 10/04/18 15:26 Source: patient Mode of arrival: Ambulatory Limitations: No Limitations - History of Present Illness Initial Comments: Ms. Ang is a 78-year-old female with history of asthma, COPD, pneumonia, atrial fibrillation, diabetes, renal insufficiency, hypertension presents with fever shortness of breath and cough for the last 2 days. She was evaluated by her PCP on yesterday. She was prescribed Z-Gera. This morning her home oxygen was 72% on her personal finger pulse oximeter. In previous occasion she has used oxygen intermittently. However she has not needed oxygen supplementation quite some time. Last hospital admission was last year. She denies pain. She has yellow greenish sputum. She is followed by tire and tube repairer and PCP. MD Complaint: shortness of breath, cough -: Gradual, days(s) (2) Severity: moderate Consistency: constant Improves With: oxygen Worsens With: exertion Known History Of: COPD, asthma, other (previous history of pneumonia) Context: recent URI Associated Symptoms: fever, cough, sputum production - Related Data Home Medications Medication Instructions Recorded Confirmed Last Taken Apixaban [Eliquis] 5 mg PO QDAY 07/07/17 07/07/17 Unknown Gabapentin [Neurontin] 300 mg PO HS 07/07/17 07/07/17 Unknown Insulin Detemir [Levemir Flextouch] 10 units SUB-Q HS 07/07/17 07/07/17 Unknown Metoprolol [Lopressor TAB] 100 mg PO BID 07/07/17 07/07/17 Unknown NIFEdipine [Nifedipine ER] 60 mg PO QDAY 07/07/17 07/07/17 Unknown Valsartan/Hydrochlorothiazide 1 tab PO QDAY 07/07/17 07/07/17 Unknown [Diovan Hct 160-25 mg] Previous Rx's Medication Instructions Recorded Last Taken Type ALBUTEROL Inhaler (OR & NICU) 2 puff IH QID PRN #1 inhalation 07/10/17 Unknown Rx [ProAir HFA Inhaler] ALPRAZolam [Xanax TAB] 0.25 mg PO Q12H PRN #14 tablet 07/10/17 Unknown Rx Azithromycin [Zithromax TAB] 250 mg PO QDAY #5 tablet 07/10/17 Unknown Rx Budesonide/Formoterol Fumarate 10.2 gm IH BID #1 hfa.aer.ad 07/10/17 Unknown Rx [Symbicort 80-4.5 Mcg Inhaler] Prednisone [predniSONE 10 mg 10 mg PO .TAPER #1 tab.ds.pk 07/10/17 Unknown Rx (6-Day Pack, 21 Tabs)] Tiotropium Buena [Spiriva 4 gm IH DAILY #1 mist.inhal 07/10/17 Unknown Rx Respimat] Allergies Allergy/AdvReac Type Severity Reaction Status Date / Time levofloxacin [From Levaquin] Allergy Swelling Verified 10/04/18 15:05 lisinopril Allergy Angioedema Verified 10/04/18 15:05 Penicillins Allergy Swelling Verified 10/04/18 15:05 ED Review of Systems ROS: Stated complaint: OXYGEN LEVEL LOW Other details as noted in HPI Comment: All other systems reviewed and negative Constitutional: fever, malaise Respiratory: cough, shortness of breath ED Past Medical Hx - Past Medical History Previous Medical History?: Yes Hx Hypertension: Yes Hx Diabetes: Yes Hx COPD: Yes Additional medical history: chronic back pain.Afib - Surgical History Hx Cholecystectomy: Yes Additional Surgical History: hysterectomy colonectomy, elbow surgery - Family History Family history: other (noncontributory to today's presentation) - Social History Smoking Status: Former Smoker Substance Use Type: None - Medications Home Medications: Home Medications Medication Instructions Recorded Confirmed Last Taken Type Apixaban [Eliquis] 5 mg PO QDAY 07/07/17 07/07/17 Unknown History Gabapentin [Neurontin] 300 mg PO HS 07/07/17 07/07/17 Unknown History Insulin Detemir [Levemir Flextouch] 10 units SUB-Q HS 07/07/17 07/07/17 Unknown History Metoprolol [Lopressor TAB] 100 mg PO BID 07/07/17 07/07/17 Unknown History NIFEdipine [Nifedipine ER] 60 mg PO QDAY 07/07/17 07/07/17 Unknown History Valsartan/Hydrochlorothiazide 1 tab PO QDAY 07/07/17 07/07/17 Unknown History [Diovan Hct 160-25 mg] ALBUTEROL Inhaler (OR & NICU) 2 puff IH QID PRN #1 inhalation 07/10/17 Unknown Rx [ProAir HFA Inhaler] ALPRAZolam [Xanax TAB] 0.25 mg PO Q12H PRN #14 tablet 07/10/17 Unknown Rx Azithromycin [Zithromax TAB] 250 mg PO QDAY #5 tablet 07/10/17 Unknown Rx Budesonide/Formoterol Fumarate 10.2 gm IH BID #1 hfa.aer.ad 07/10/17 Unknown Rx [Symbicort 80-4.5 Mcg Inhaler] Prednisone [predniSONE 10 mg 10 mg PO .TAPER #1 tab.ds.pk 07/10/17 Unknown Rx (6-Day Pack, 21 Tabs)] Tiotropium Buena [Spiriva 4 gm IH DAILY #1 mist.inhal 07/10/17 Unknown Rx Respimat] ED Physical Exam - General Limitations: No Limitations General appearance: alert, in no apparent distress, other (speaking for sentences with mild work of breathing) - Head Head exam: Present: atraumatic, normocephalic - Eye Eye exam: Present: normal appearance - ENT ENT exam: Present: other (mucous in the posterior oropharynx) - Neck Neck exam: Present: normal inspection, full ROM - Respiratory Respiratory exam: Present: rales, decreased breath sounds. Absent: wheezes, rhonchi, stridor - Cardiovascular Cardiovascular Exam: Present: normal rhythm, tachycardia, normal heart sounds. Absent: systolic murmur, diastolic murmur - GI/Abdominal GI/Abdominal exam: Present: soft. Absent: distended, tenderness, guarding, rebound - Extremities Exam Extremities exam: Absent: tenderness - Neurological Exam Neurological exam: Present: alert, oriented X3 - Psychiatric Psychiatric exam: Present: normal affect, normal mood - Skin Skin exam: Present: warm, dry, intact, normal color ED Course Vital Signs 10/04/18 10/04/18 10/04/18 15:09 15:17 15:24 Temperature 100.1 F H Pulse Rate 101 H Respiratory 22 Rate Blood Pressure Blood Pressure 175/77 [Right] O2 Sat by Pulse 86 99 94 Oximetry 10/04/18 10/04/18 10/04/18 15:25 15:27 15:29 Temperature Pulse Rate Respiratory Rate Blood Pressure 152/61 152/61 152/61 Blood Pressure [Right] O2 Sat by Pulse 95 94 97 Oximetry 10/04/18 15:30 Temperature Pulse Rate Respiratory Rate Blood Pressure 155/60 Blood Pressure [Right] O2 Sat by Pulse 98 Oximetry ED Medical Decision Making - Lab Data Result diagrams: 10/04/18 16:09 10/04/18 16:09 - Radiology Data Radiology results: image reviewed Personal review: Left lower lobe infiltrate right lower pleural effusion - Medical Decision Making Ms. Ang presents with acute respiratory failure with history of COPD and asthma. Community acquired pneumonia Admitted to hospitalist service Critical care attestation.: If time is entered above; I have spent that time in minutes in the direct care of this critically ill patient, excluding procedure time. ED Disposition Clinical Impression: Acute respiratory failure with hypoxia, COPD exacerbation, Community acquired pneumonia Disposition: OP ADMIT IP TO THIS HOSP Is pt being admited?: Yes Does the pt Need Aspirin: No Condition: Stable
[2018-10-04] MEDS ORDERED: TYLENOL PO ONE (18:08)
[2018-10-04] MEDS ORDERED: TYLENOL ONE (18:11)
[2018-10-04] MEDS: ZITHROMAX 500 MG in NACL 0.9% 250ML 250 ML IV SCH (18:20)
--- NOTE | 2018-10-04 18:30 | History and Physical Report ---
History of Present Illness Chief complaint: I cant breathe, and im coughing up phlegm History of present illness: 78 YO Female with COPD, Atrial Fib on Therapeutic Anticoagulation with Eliquis, HTN, DM, present to ED for evaluation. Pt states that she has experienced shortness of breath and subjective fever over the past 2 days with persistent symptoms over the same time frame. Pt acknowledges increased productive cough with increased amounts of yellow phlegm. Pt also reports increased use of nebulizer therapy without relief. PT was seen by her PCP and was treated with antibiotic therapy with worsening of symptoms. Pt transported to [facility] by her daughter for further care and evaluation. Pt seen and evaluated in ED and found to have LLL Pneumonia complicated by sepsis as well as COPD exacerbation, and acute respiratory failure. Pt admitted to IMCU and initiated on Sepsis/Pneumonia protocol. Pt denies CP, Palpitations, NVD, unilateral leg swelling, calf pain, skin rash, trauma or recent ill contacts. Past History Past Medical History: atrial fib, COPD, diabetes, hypertension, renal failure Past Surgical History: cholecystectomy, hysterectomy, Other (elbow, ) Social history: . denies: smoking, alcohol abuse, prescription drug abuse Family history: diabetes, hypertension Medications and Allergies Allergies Allergy/AdvReac Type Severity Reaction Status Date / Time levofloxacin [From Levaquin] Allergy Swelling Verified 10/04/18 15:05 lisinopril Allergy Angioedema Verified 10/04/18 15:05 Penicillins Allergy Swelling Verified 10/04/18 15:05 Home Medications Medication Instructions Recorded Confirmed Last Taken Type Apixaban [Eliquis] 5 mg PO QDAY 07/07/17 10/04/18 Unknown History Gabapentin [Neurontin] 300 mg PO HS 07/07/17 10/04/18 Unknown History Insulin Detemir [Levemir Flextouch] 10 units SUB-Q HS 07/07/17 10/04/18 Unknown History Metoprolol [Lopressor TAB] 100 mg PO BID 07/07/17 10/04/18 Unknown History NIFEdipine [Nifedipine ER] 30 mg PO QDAY 07/07/17 10/04/18 Unknown History Valsartan/Hydrochlorothiazide 1 tab PO QDAY 07/07/17 10/04/18 Unknown History [Diovan Hct 160-25 mg] ALPRAZolam [Xanax TAB] 0.5 mg PO HS 10/04/18 10/04/18 Unknown History Active Meds: Active Medications Azithromycin 500 mg/ Sodium (Chloride) 250 mls @ 250 mls/hr IV Q24HR KATHLEEN; Protocol Last Admin: 10/04/18 18:20 Dose: 250 mls/hr Documented by: Ceftriaxone Sodium (Rocephin/Ns 2 Gm/100 Ml) 2 gm in 100 mls @ 200 mls/hr IV Q24HR KATHLEEN; Protocol Last Admin: 10/04/18 16:57 Dose: 200 mls/hr Documented by: Review of Systems Constitutional: no weight loss, no weight gain, no fever, no chills Ears, nose, mouth and throat: no ear pain, no ear discharge, no tinnitis, no decreased hearing, no nose pain Breasts: no change in shape, no swelling, no mass Cardiovascular: shortness of breath, no chest pain, no orthopnea, no palpi tations, no rapid/irregular heart beat Respiratory: cough, cough with sputum, excessive sputum, shortness of breath, wheezing Gastrointestinal: no nausea, no vomiting, no diarrhea Genitourinary Female: no pelvic pain, no flank pain, no menorrhagia, no dysuria, no urinary frequency Rectal: no pain, no incontinence, no bleeding Musculoskeletal: no neck pain, no shooting arm pain, no arm numbness/tingling, no low back pain, no shooting leg pain Integumentary: no rash, no pruritis, no redness, no sores, no jaundice Neurological: no paralysis, no weakness, no parathesias, no numbness, no tingling Psychiatric: no memory loss, no change in sleep habits, no sleep disturbances, no insomnia Endocrine: no cold intolerance, no heat intolerance, no polyphagia, no excessive thirst, no polydipsia, no polyuria Hematologic/Lymphatic: no easy bruising, no easy bleeding, no lymphadenopathy, no lymphedema Allergic/Immunologic: no urticaria, no wheezing, no persistent infections, no anaphylaxis, no angioedema Exam - Constitutional Vitals: Temp Pulse Resp BP Pulse Ox 100.1 F H 101 H 22 155/60 98 10/04/18 15:09 10/04/18 15:09 10/04/18 15:09 10/04/18 15:30 10/04/18 15:30 General appearance: Present: mild distress - EENT Eyes: Present: PERRL ENT: hearing intact, clear oral mucosa - Neck Neck: Present: supple, normal ROM - Respiratory Respiratory effort: normal Respiratory: bilateral: diminished, rhonchi - Cardiovascular Heart Sounds: Present: S1 & S2. Absent: rub, click - Extremities Extremities: pulses symmetrical, No edema Peripheral Pulses: abnormal (capillary refill greater than 3.5 seconds) - Abdominal General gastrointestinal: Present: soft, non-tender, non-distended, normal bowel sounds Female genitourinary: Present: normal - Integumentary Integumentary: Present: clear, warm, dry - Musculoskeletal Musculoskeletal: gait normal, strength equal bilaterally - Psychiatric Psychiatric: appropriate mood/affect, intact judgment & insight - Neurologic Neurologic: CNII-XII intact, moves all extremities Results - Labs CBC & Chem 7: 10/04/18 16:09 10/04/18 16:09 Labs: Abnormal lab results 10/04/18 10/04/18 Range/Units 16:09 16:09 WBC 15.4 H (4.5-11.0) K/mm3 Lymph % (Auto) 5.4 L (13.4-35.0) % Lymph # 0.8 L (1.2-5.4) K/mm3 [place] # 1.1 H (0.0-0.8) K/mm3 Seg Neutrophils % 86.6 H (40.0-70.0) % Seg Neutrophils # 13.4 H (1.8-7.7) K/mm3 Sodium 131 L (137-145) mmol/L Chloride 87.2 L (98-107) mmol/L Carbon Dioxide 31 H (22-30) mmol/L BUN 24 H (7-17) mg/dL Glucose 235 H (65-100) mg/dL Albumin 3.7 L (3.9-5) g/dL Assessment and Plan - Patient Problems (1) Sepsis Current Visit: Yes Status: Acute Qualifiers: Sepsis type: sepsis due to unspecified organism Qualified Code(s): A41.9 - Sepsis, unspecified organism Plan to address problem: IV antibiotic therapy, IVF resuscitation therapy, influenza A/B, blood cultures, chest x ray, urinalysis, monitor uop q shift, serial lactic acid. (2) Pneumonia Current Visit: Yes Status: Acute Qualifiers: Laterality: left Lung location: lower lobe of lung Plan to address problem: IV antibiotics, Chest X ray, supplemental oxygen, nebulizer therapy, blood cultures. (3) Acute respiratory failure with hypoxia Current Visit: Yes Status: Acute Plan to address problem: Supplemental oxygen, chest x ray, NIPPV as clinically indicated, pulse oximetry (4) COPD exacerbation Current Visit: Yes Status: Acute Plan to address problem: supplemental oxygen, empiric antibiotic therapy, IV steroid therapy, chest x ray, pulse oximetry (5) DVT prophylaxis Current Visit: No Status: Acute Plan to address problem: SCD to BLE while in bed
[2018-10-04] MEDS ORDERED: PROAIR IH PRN (18:33)
[2018-10-04] MEDS ORDERED: NACL 0.9% 1000 ML IV ONE (18:35)
--- NOTE | 2018-10-04 18:39 | XRay Report ---
FINAL REPORT EXAM: XR CHEST 1V AP HISTORY: dyspnea TECHNIQUE: One view examination of the chest PRIORS: None FINDINGS: Right CP angle opacity may be scar and/or moderate pleural effusion. Similar density smaller in left CP angle. Nonspecific streaky densities are present bilaterally with slight bibasilar predominance. This inters titial prominence may represent interstitial and/or vascular markings. There is no focal pulmonary consolidation. No evidence of pneumothorax. The cardiac silhouette size is normal. No evidence of acute skeletal pathology. Healed posterior left rib fractures. IMPRESSION: Nonspecific interstitial prominence may reflect scarring or fibrosis. Acute considerations include r eactive airways disease, vascular congestion, interstitial edema, viral process, or interstitial pneu monitis. Bilateral CP angle opacity may be pleural scar and/or pleural effusions, larger on the right
[2018-10-04] MEDS ORDERED: PROVENTIL IH PRN (19:05)
[2018-10-04] MEDS ORDERED: PULMICORT IH SCH (19:15)
[2018-10-04] MEDS ORDERED: SODIUM CHLORIDE FLUSH SYRINGE 10 ML IV PRN (19:32)
[2018-10-04 21:45] LABS: Bilirubin,Urine NEG (Negative); Blood,Urine NEG (Negative); Color,Urine Amber (Yellow); Mucus,Urine FEW /HPF; Urobilinogen,Urine < 2.0 mg/dL (<2.0)
[2018-10-04] MEDS ORDERED: INSULIN DETEMIR 10 UNIT SUB-Q SCH (22:00)
[2018-10-04] MEDS: LANTUS SUB-Q SCH (22:00)
[2018-10-04] MEDS ORDERED: NON-FORMULARY (Budesonide/Formoterol Fumarate [Symbicort 80-4.5 Mcg Inhaler] 10.2 GM) IH SCH (22:00)
[2018-10-04] MEDS: SOLU-Medrol IV SCH (23:40)
[2018-10-04] MEDS: XANAX PO SCH (23:40)
[2018-10-04] MEDS: SODIUM CHLORIDE FLUSH SYRINGE 10 ML IV SCH (23:40)
[2018-10-04] MEDS: NEURONTIN PO SCH (23:40)
[2018-10-05] MEDS: XANAX PO PRN (01:25)
[2018-10-05] MEDS: PULMICORT IH SCH ×3 (02:00→19:19)
[2018-10-05] MEDS: BROVANA NEBU IH SCH ×3 (02:00→19:18)
--- NOTE | 2018-10-05 09:33 | Progress Note ---
Assessment and Plan Assessment and plan: -- Sepsis/lactic acidosis Current Visit: Yes Status: Acute Qualifiers: Sepsis type: sepsis due to unspecified organism Qualified Code(s): A41.9 - Sepsis, unspecified organism Plan to address problem: IV antibiotic therapy, IVF resuscitation therapy, influenza A/B, blood cultures, chest x ray, urinalysis, monitor uop q shift, serial lactic acid. -- Pneumonia/community acquired Current Visit: Yes Status: Acute Qualifiers: Laterality: left Lung location: lower lobe of lung Plan to address problem: IV antibiotics, Chest X ray, supplemental oxygen, nebulizer therapy, blood cultures. --Acute respiratory failure with hypoxia Current Visit: Yes Status: Acute Plan to address problem: Supplemental oxygen, chest x ray, NIPPV as clinically indicated, pulse oximetry -- COPD exacerbation Current Visit: Yes Status: Acute Plan to address problem: supplemental oxygen, empiric antibiotic therapy, IV steroid therapy, chest x ray, pulse oximetry --History of A. fib; rate controlled continue beta blockers, anticoagulation with Eliquis --Type 2 diabetes mellitus ; uncontrolled, Accu-Chek sliding scale coverage and ADA diet long-acting insulin. --DVT prophylaxis Current Visit: No Status: Acute Plan to address problem: SCD to BLE while in bed/Eliquis History Interval history: Since seen and examined medical records reviewed Patient feels slightly better Blood sugars are uncontrolled as she did not receive her night Lantus Alert awake oriented 3 Vital signs reviewed Hospitalist Physical - Constitutional Vitals: Temp Pulse Resp BP Pulse Ox 97.8 F 72 22 125/53 97 10/05/18 08:00 10/05/18 09:00 10/05/18 07:54 10/05/18 06:11 10/05/18 09:24 General appearance: Present: no acute distress, well-nourished - EENT Eyes: Present: PERRL, EOM intact - Neck Neck: Present: supple, normal ROM - Respiratory Respiratory effort: normal Respiratory: bilateral: diminished, rhonchi, negative: rales, wheezing - Cardiovascular Rhythm: regular Heart Sounds: Present: S1 & S2 - Extremities Extremities: no ischemia, No edema - Abdominal General gastrointestinal: soft, non-tender, non-distended, normal bowel sounds - Integumentary Integumentary: Present: clear, warm - Psychiatric Psychiatric: appropriate mood/affect, cooperative - Neurologic Neurologic: CNII-XII intact, moves all extremities Results - Labs CBC & Chem 7: 10/04/18 16:09 10/04/18 16:09 Labs: Laboratory Last Values WBC 15.4 K/mm3 (4.5-11.0) H 10/04/18 16:09 RBC 4.56 M/mm3 (3.65-5.03) 10/04/18 16:09 Hgb 13.3 gm/dl (10.1-14.3) 10/04/18 16:09 Hct 39.9 % (30.3-42.9) 10/04/18 16:09 MCV 88 fl (79-97) 10/04/18 16:09 MCH 29 pg (28-32) 10/04/18 16:09 MCHC 33 % (30-34) 10/04/18 16:09 RDW 13.6 % (13.2-15.2) 10/04/18 16:09 Plt Count 251 K/mm3 (140-440) 10/04/18 16:09 Lymph % (Auto) 5.4 % (13.4-35.0) L 10/04/18 16:09 [place] % (Auto) 7.3 % (0.0-7.3) 10/04/18 16:09 Eos % (Auto) 0.2 % (0.0-4.3) 10/04/18 16:09 Baso % (Auto) 0.5 % (0.0-1.8) 10/04/18 16:09 Lymph # 0.8 K/mm3 (1.2-5.4) L 10/04/18 16:09 [place] # 1.1 K/mm3 (0.0-0.8) H 10/04/18 16:09 Eos # 0.0 K/mm3 (0.0-0.4) 10/04/18 16:09 Baso # 0.1 K/mm3 (0.0-0.1) 10/04/18 16:09 Seg Neutrophils % 86.6 % (40.0-70.0) H 10/04/18 16:09 Seg Neutrophils # 13.4 K/mm3 (1.8-7.7) H 10/04/18 16:09 Sodium 131 mmol/L (137-145) L 10/04/18 16:09 Potassium 3.9 mmol/L (3.6-5.0) 10/04/18 16:09 Chloride 87.2 mmol/L (98-107) L 10/04/18 16:09 Carbon Dioxide 31 mmol/L (22-30) H 10/04/18 16:09 Anion Gap 17 mmol/L 10/04/18 16:09 BUN 24 mg/dL (7-17) H 10/04/18 16:09 Creatinine 1.2 mg/dL (0.7-1.2) 10/04/18 16:09 Estimated GFR 43 ml/min 10/04/18 16:09 BUN/Creatinine Ratio 20 % 10/04/18 16:09 Glucose 235 mg/dL (65-100) H 10/04/18 16:09 POC Glucose 322 (70-105) H 10/05/18 09:08 Lactic Acid 2.00 mmol/L (0.7-2.0) 10/05/18 05:28 Calcium 8.9 mg/dL (8.4-10.2) 10/04/18 16:09 Total Bilirubin 0.90 mg/dL (0.1-1.2) 10/04/18 16:09 AST 19 units/L (5-40) 10/04/18 16:09 ALT 8 units/L (7-56) 10/04/18 16:09 Alkaline Phosphatase 75 units/L (35-129) 10/04/18 16:09 NT-Pro-B Natriuret Pep 3123 pg/mL (0-900) H 10/04/18 16:09 Total Protein 6.4 g/dL (6.3-8.2) 10/04/18 16:09 Albumin 3.7 g/dL (3.9-5) L 10/04/18 16:09 Albumin/Globulin Ratio 1.4 % 10/04/18 16:09 Urine Color Janee (Yellow) 10/04/18 21:25 Urine Turbidity Slightly-cloudy (Clear) 10/04/18 21:25 Urine pH 5.0 (5.0-7.0) 10/04/18 21:25 Ur Specific [place] 1.020 (1.003-1.030) 10/04/18 21:25 Urine Protein 30 mg/dl mg/dL (Negative) 10/04/18 21:25 Urine Glucose (UA) 150 mg/dL (Negative) 10/04/18 21:25 Urine Ketones Neg mg/dL (Negative) 10/04/18 21:25 Urine Blood Neg (Negative) 10/04/18 21:25 Urine Nitrite Neg (Negative) 10/04/18 21:25 Urine Bilirubin Neg (Negative) 10/04/18 21:25 Urine Urobilinogen < 2.0 mg/dL (<2.0) 10/04/18 21:25 Ur Leukocyte Esterase Neg (Negative) 10/04/18 21:25 Urine WBC (Auto) 2.0 /HPF (0.0-6.0) 10/04/18 21:25 Urine RBC (Auto) 1.0 /HPF (0.0-6.0) 10/04/18 21:25 U Epithel Cells (Auto) < 1.0 /HPF (0-13.0) 10/04/18 21:25 Urine Mucus Few /HPF 10/04/18 21:25
[2018-10-05] MEDS ORDERED: HYDROCHLOROTHIAZIDE PO SCH (10:00)
[2018-10-05] MEDS ORDERED: VALSARTAN PO SCH (10:00)
[2018-10-05] MEDS ORDERED: NON-FORMULARY (Tiotropium Bromide [Spiriva Respimat] 4 GM) IH SCH (10:00)
[2018-10-05] MEDS: ZITHROMAX 500 MG in NACL 0.9% 250ML 250 ML IV SCH ×2 (10:40→10:47)
[2018-10-05] MEDS: ROCEPHIN/NS 2 GM/100 ML 2 GM/100 ML BAG IV SCH ×2 (10:40→10:46)
[2018-10-05] MEDS: DIOVAN PO SCH (10:48)
[2018-10-05] MEDS: ELIQUIS PO SCH (10:48)
[2018-10-05] MEDS: HCTZ PO SCH (10:49)
[2018-10-05] MEDS: PROCARDIA XL PO SCH (10:49)
[2018-10-05] MEDS: SODIUM CHLORIDE FLUSH SYRINGE 10 ML IV SCH (10:49)
[2018-10-05] MEDS: SOLU-Medrol IV SCH ×2 (10:50→22:22)
[2018-10-05] MEDS: HumaLOG SUB-Q SCH ×3 (12:00→22:23)
--- NOTE | 2018-10-05 13:55 | Consultation ---
History of Present Illness Consult date: 10/05/18 Requesting physician: PAYAM JUAREZ Reason for consult: COPD History of present illness: 78 y/o female with known COPD, likely some right sided heart failure as well presents with 2-3 days of worsening dyspnea on exertion and cough productive of yellow sputum. Saw PCP 2 days ago. No change so instructed to come to ED. In ED, told that she has pneumonia on the left side. CXR does not reveal this. Does have some small bilateral pleural effusions, right greater than left. Had fever at home up to 101.2. No sick contacts. Remainder of the review is negative. Past History Past Medical History: atrial fib, COPD, diabetes, hypertension, renal failure Past Surgical History: cholecystectomy, hysterectomy, Other (elbow, ) Social history: . denies: smoking, alcohol abuse, prescription drug abuse Family history: diabetes, hypertension Medications and Allergies Allergies Allergy/AdvReac Type Severity Reaction Status Date / Time levofloxacin [From Levaquin] Allergy Swelling Verified 10/04/18 15:05 lisinopril Allergy Angioedema Verified 10/04/18 15:05 Penicillins Allergy Swelling Verified 10/04/18 15:05 Home Medications Medication Instructions Recorded Confirmed Last Taken Type Apixaban [Eliquis] 5 mg PO QDAY 07/07/17 10/04/18 Unknown History Gabapentin [Neurontin] 300 mg PO HS 07/07/17 10/04/18 Unknown History Insulin Detemir [Levemir Flextouch] 10 units SUB-Q HS 07/07/17 10/04/18 Unknown History Metoprolol [Lopressor TAB] 100 mg PO BID 07/07/17 10/04/18 Unknown History NIFEdipine [Nifedipine ER] 30 mg PO QDAY 07/07/17 10/04/18 Unknown History Valsartan/Hydrochlorothiazide 1 tab PO QDAY 07/07/17 10/04/18 Unknown History [Diovan Hct 160-25 mg] ALPRAZolam [Xanax TAB] 0.5 mg PO HS 10/04/18 10/04/18 Unknown History Active Meds: Active Medications Albuterol (Proventil) 2.5 mg IH QID PRN PRN Reason: Shortness Of Breath Alprazolam (Xanax) 0.25 mg PO Q12H PRN PRN Reason: Anxiety Last Admin: 10/05/18 01:25 Dose: 0.25 mg Documented by: Alprazolam (Xanax) 0.5 mg PO HS [facility] Last Admin: 10/04/18 23:40 Dose: 0.5 mg Documented by: Apixaban (Eliquis) 5 mg PO QDAY [facility]; Protocol Last Admin: 10/05/18 10:48 Dose: 5 mg Documented by: Arformoterol Tartrate (Brovana Nebu) 15 mcg IH Q12HRT [facility] Last Admin: 10/05/18 07:44 Dose: 15 mcg Documented by: Budesonide (Pulmicort) 0.5 mg IH Q12H KATHLEEN Last Admin: 10/05/18 07:44 Dose: 0.5 mg Documented by: Gabapentin (Neurontin) 300 mg PO [facility] Last Admin: 10/04/18 23:40 Dose: 300 mg Documented by: Hydrochlorothiazide (Hctz) 25 mg PO QDAY [facility] Last Admin: 10/05/18 10:49 Dose: 25 mg Documented by: Azithromycin 500 mg/ Sodium (Chloride) 250 mls @ 250 mls/hr IV Q24HR [facility]; Protocol Last Admin: 10/05/18 10:47 Dose: 250 mls/hr Documented by: Ceftriaxone Sodium (Rocephin/Ns 2 Gm/100 Ml) 2 gm in 100 mls @ 200 mls/hr IV Q24HR [facility]; Protocol Last Admin: 10/05/18 10:46 Dose: 200 mls/hr Documented by: Insulin Glargine (Lantus) 10 units SUB-Q QHS [facility] Last Admin: 10/04/18 22:00 Dose: Not Given Documented by: Insulin Human Lispro (Humalog) 0 unit SUB-Q ACHS [facility]; Protocol Last Admin: 10/05/18 12:00 Dose: 10 unit Documented by: Methylprednisolone Sodium Succinate (Solu-Medrol) 20 mg IV Q12HR [facility] Last Admin: 10/05/18 10:50 Dose: 20 mg Documented by: Nifedipine (Procardia Xl) 60 mg PO QDAY [facility] Last Admin: 10/05/18 10:49 Dose: 60 mg Documented by: Sodium Chloride (Sodium Chloride Flush Syringe 10 Ml) 10 ml IV BID [facility] Last Admin: 10/05/18 10:49 Dose: 10 ml Documented by: Sodium Chloride (Sodium Chloride Flush Syringe 10 Ml) 10 ml IV PRN PRN PRN Reason: LINE FLUSH Tiotropium [place] (Spiriva) 1 puff IH Q24HR [facility] Valsartan (Diovan) 160 mg PO QDAY [facility] Last Admin: 10/05/18 10:48 Dose: 160 mg Documented by: Review of Systems All systems: negative Physical Examination Vital signs: Vital Signs Temp Pulse Resp BP Pulse Ox 100.1 F H 101 H 22 175/77 86 10/04/18 15:09 10/04/18 15:09 10/04/18 15:09 10/04/18 15:09 10/04/18 15:09 General appearance: no acute distress, alert Eyes: non-icteric ENT: oropharynx moist Neck: supple Effort: normal Ascultation: Bilateral: clear (anteriorly) Results - Laboratory Findings CBC and BMP: 10/04/18 16:09 10/04/18 16:09 Abnormal lab findings: Abnormal Labs 10/04/18 10/04/18 10/04/18 16:09 16:09 16:09 WBC 15.4 H Lymph % (Auto) 5.4 L Lymph # 0.8 L [place] # 1.1 H Seg Neutrophils % 86.6 H Seg Neutrophils # 13.4 H Sodium 131 L Chloride 87.2 L Carbon Dioxide 31 H BUN 24 H Glucose 235 H POC Glucose Lactic Acid NT-Pro-B Natriuret Pep 3123 H Albumin 3.7 L 10/04/18 10/05/18 10/05/18 21:59 09:08 09:12 WBC Lymph % (Auto) Lymph # [place] # Seg Neutrophils % Seg Neutrophils # Sodium Chloride Carbon Dioxide BUN Glucose POC Glucose 322 H Lactic Acid 2.50 H* 2.70 H* NT-Pro-B Natriuret Pep Albumin - Diagnostic Findings Chest x-ray: image reviewed (As stated in HPI) Assessment and Plan 78 y/o female with chronic respiratory failure, admitted with likely dyspnea secondary to acute bronchitis. 1. Change to Levaquin PO daily as staff unable to obtain IV 2. Ok with current dosing of steroid but should switch to oral very soon 3. Continue supplemental O2 4. All others per primary team
[2018-10-05] MEDS: LEVAQUIN PO SCH (16:32)
[2018-10-05] MEDS: SPIRIVA IH SCH (18:00)
[2018-10-05] MEDS: NEURONTIN PO SCH (22:22)
[2018-10-05] MEDS: XANAX PO SCH (22:22)
[2018-10-05] MEDS: LANTUS SUB-Q SCH (22:30)
[2018-10-06] MEDS: XANAX PO PRN (04:16)
[2018-10-06] MEDS: PULMICORT IH SCH ×2 (07:58→19:52)
[2018-10-06] MEDS: BROVANA NEBU IH SCH ×2 (07:58→19:53)
[2018-10-06] MEDS: SPIRIVA IH SCH ×2 (07:58→20:02)
--- NOTE | 2018-10-06 08:13 | Progress Note ---
Assessment and Plan Assessment and plan: -- Sepsis/lactic acidosis Current Visit: Yes Status: Acute Qualifiers: Sepsis type: sepsis due to unspecified organism Qualified Code(s): A41.9 - Sepsis, unspecified organism Plan to address problem: continue IV antibiotic , IVF , follow cultures -- Pneumonia/community acquired Current Visit: Yes Status: Acute Qualifiers: Laterality: left Lung location: lower lobe of lung Plan to address problem: IV antibiotics, oxygen titrated to O2 sats more than 90%, Follow cultures --Acute respiratory failure with hypoxia Current Visit: Yes Status: Acute Plan to address problem: Secondary to COPD exacerbation oxygen, nebulizers, tapering dose of steroids, antibiotics -- COPD exacerbation Current Visit: Yes Status: Acute Plan to address problem: Bronchodilators ,inhalation steroids, tapering dose of steroids --History of A. fib; rate controlled continue beta blockers, anticoagulation with Eliquis --Type 2 diabetes mellitus ; uncontrolled, probably secondary to steroid use, Accu-Chek sliding scale coverage and ADA diet long-acting insulin. --DVT prophylaxis Current Visit: No Status: Acute Plan to address problem: SCD to BLE while in bed/Eliquis History Interval history: Patient seen and examined medical records reviewed Patient feels slightly better no new complaints Alert awake oriented 3 Vital signs reviewed Hospitalist Physical - Constitutional Vitals: Temp Pulse Resp BP Pulse Ox 97.2 F L 104 H 19 105/47 97 10/06/18 04:00 10/06/18 07:59 10/06/18 07:59 10/06/18 04:00 10/06/18 08:00 General appearance: Present: no acute distress, well-nourished - EENT Eyes: Present: PERRL, EOM intact - Neck Neck: Present: supple, normal ROM - Respiratory Respiratory effort: normal Respiratory: bilateral: diminished, rhonchi, negative: rales, wheezing - Cardiovascular Rhythm: regular Heart Sounds: Present: S1 & S2 - Extremities Extremities: no ischemia, No edema - Abdominal General gastrointestinal: soft, non-tender, non-distended, normal bowel sounds - Integumentary Integumentary: Present: clear, warm - Psychiatric Psychiatric: appropriate mood/affect, cooperative - Neurologic Neurologic: moves all extremities Results - Labs CBC & Chem 7: 10/04/18 16:09 10/06/18 10:28 Labs: Laboratory Last Values WBC 15.4 K/mm3 (4.5-11.0) H 10/04/18 16:09 RBC 4.56 M/mm3 (3.65-5.03) 10/04/18 16:09 Hgb 13.3 gm/dl (10.1-14.3) 10/04/18 16:09 Hct 39.9 % (30.3-42.9) 10/04/18 16:09 MCV 88 fl (79-97) 10/04/18 16:09 MCH 29 pg (28-32) 10/04/18 16:09 MCHC 33 % (30-34) 10/04/18 16:09 RDW 13.6 % (13.2-15.2) 10/04/18 16:09 Plt Count 251 K/mm3 (140-440) 10/04/18 16:09 Lymph % (Auto) 5.4 % (13.4-35.0) L 10/04/18 16:09 [place] % (Auto) 7.3 % (0.0-7.3) 10/04/18 16:09 Eos % (Auto) 0.2 % (0.0-4.3) 10/04/18 16:09 Baso % (Auto) 0.5 % (0.0-1.8) 10/04/18 16:09 Lymph # 0.8 K/mm3 (1.2-5.4) L 10/04/18 16:09 [place] # 1.1 K/mm3 (0.0-0.8) H 10/04/18 16:09 Eos # 0.0 K/mm3 (0.0-0.4) 10/04/18 16:09 Baso # 0.1 K/mm3 (0.0-0.1) 10/04/18 16:09 Seg Neutrophils % 86.6 % (40.0-70.0) H 10/04/18 16:09 Seg Neutrophils # 13.4 K/mm3 (1.8-7.7) H 10/04/18 16:09 Sodium 131 mmol/L (137-145) L 10/04/18 16:09 Potassium 3.9 mmol/L (3.6-5.0) 10/04/18 16:09 Chloride 87.2 mmol/L (98-107) L 10/04/18 16:09 Carbon Dioxide 31 mmol/L (22-30) H 10/04/18 16:09 Anion Gap 17 mmol/L 10/04/18 16:09 BUN 24 mg/dL (7-17) H 10/04/18 16:09 Creatinine 1.2 mg/dL (0.7-1.2) 10/04/18 16:09 Estimated GFR 43 ml/min 10/04/18 16:09 BUN/Creatinine Ratio 20 % 10/04/18 16:09 Glucose 235 mg/dL (65-100) H 10/04/18 16:09 POC Glucose 179 (70-105) H 10/05/18 20:25 Lactic Acid 2.70 mmol/L (0.7-2.0) H* 10/05/18 09:12 Calcium 8.9 mg/dL (8.4-10.2) 10/04/18 16:09 Total Bilirubin 0.90 mg/dL (0.1-1.2) 10/04/18 16:09 AST 19 units/L (5-40) 10/04/18 16:09 ALT 8 units/L (7-56) 10/04/18 16:09 Alkaline Phosphatase 75 units/L (35-129) 10/04/18 16:09 NT-Pro-B Natriuret Pep 3123 pg/mL (0-900) H 10/04/18 16:09 Total Protein 6.4 g/dL (6.3-8.2) 10/04/18 16:09 Albumin 3.7 g/dL (3.9-5) L 10/04/18 16:09 Albumin/Globulin Ratio 1.4 % 10/04/18 16:09 Urine Color [place] (Yellow) 10/04/18 21:25 Urine Turbidity Slightly-cloudy (Clear) 10/04/18 21:25 Urine pH 5.0 (5.0-7.0) 10/04/18 21:25 Ur Specific [place] 1.020 (1.003-1.030) 10/04/18 21:25 Urine Protein 30 mg/dl mg/dL (Negative) 10/04/18 21:25 Urine Glucose (UA) 150 mg/dL (Negative) 10/04/18 21:25 Urine Ketones Neg mg/dL (Negative) 10/04/18 21:25 Urine Blood Neg (Negative) 10/04/18 21:25 Urine Nitrite Neg (Negative) 10/04/18 21:25 Urine Bilirubin Neg (Negative) 10/04/18 21:25 Urine Urobilinogen < 2.0 mg/dL (<2.0) 10/04/18 21:25 Ur Leukocyte Esterase Neg (Negative) 10/04/18 21:25 Urine WBC (Auto) 2.0 /HPF (0.0-6.0) 10/04/18 21:25 Urine RBC (Auto) 1.0 /HPF (0.0-6.0) 10/04/18 21:25 U Epithel Cells (Auto) < 1.0 /HPF (0-13.0) 10/04/18 21:25 Urine Mucus Few /HPF 10/04/18 21:25
[2018-10-06] MEDS: PROCARDIA XL PO SCH (10:37)
[2018-10-06] MEDS: ELIQUIS PO SCH (10:38)
[2018-10-06] MEDS: HCTZ PO SCH (10:38)
[2018-10-06] MEDS: DIOVAN PO SCH (10:39)
[2018-10-06] MEDS: SOLU-Medrol IV SCH ×2 (10:40→23:20)
[2018-10-06 11:00] LABS: Calcium 8.5 mg/dL (8.4-10.2)
[2018-10-06] MEDS: HumaLOG SUB-Q SCH ×3 (12:00→23:22)
--- NOTE | 2018-10-06 13:06 | Progress Note ---
Assessment and Plan 78 y/o female with chronic respiratory failure, admitted with likely dyspnea secondary to acute bronchitis. 1. Continue Levaquin. Will need for a total of 8 days. 2. Suggest changing to Prednisone 40 daily and tape as follows. 40x2, 20x2,10x2 then stop. 3. Continue supplemental O2 4. All others per primary team 5. From a lung standpoint, should be stable for discharge tomorrow. Subjective Date of service: 10/06/18 Interval history: No acute events. Still coughing up green sputum. Tolerated PO levaquin with no issues. Blood sugars elevated on 40 total of solumedrol. Objective Vital Signs - 12hr 10/06/18 10/06/18 10/06/18 02:00 03:00 04:00 Temperature 97.2 F L Pulse Rate 81 77 83 Pulse Rate [ Bilateral] Pulse Rate [ 85 From Monitor] Respiratory 19 14 17 Rate Respiratory Rate [Bilateral ] Blood Pressure 115/48 115/48 105/47 O2 Sat by Pulse 96 99 98 Oximetry 10/06/18 10/06/18 10/06/18 05:00 07:59 08:00 Temperature Pulse Rate 80 Pulse Rate [ 104 H Bilateral] Pulse Rate [ From Monitor] Respiratory Rate Respiratory 19 Rate [Bilateral ] Blood Pressure O2 Sat by Pulse 97 Oximetry 10/06/18 10:39 Temperature Pulse Rate 98 H Pulse Rate [ Bilateral] Pulse Rate [ From Monitor] Respiratory Rate Respiratory Rate [Bilateral ] Blood Pressure 132/51 O2 Sat by Pulse Oximetry Constitutional: no acute distress, alert Eyes: non-icteric ENT: oropharynx moist Neck: supple Effort: normal Ascultation: Bilateral: clear (anteriorly) CBC and BMP: 10/04/18 16:09 10/06/18 10:28 Abnormal lab findings: Abnormal Labs 10/04/18 10/04/18 10/04/18 16:09 16:09 16:09 WBC 15.4 H Lymph % (Auto) 5.4 L Lymph # 0.8 L [place] # 1.1 H Seg Neutrophils % 86.6 H Seg Neutrophils # 13.4 H Sodium 131 L Chloride 87.2 L Carbon Dioxide 31 H BUN 24 H Glucose 235 H POC Glucose Lactic Acid NT-Pro-B Natriuret Pep 3123 H Albumin 3.7 L 10/04/18 10/05/18 10/05/18 21:59 09:08 09:12 WBC Lymph % (Auto) Lymph # [place] # Seg Neutrophils % Seg Neutrophils # Sodium Chloride Carbon Dioxide BUN Glucose POC Glucose 322 H Lactic Acid 2.50 H* 2.70 H* NT-Pro-B Natriuret Pep Albumin 10/05/18 10/05/18 10/05/18 12:37 16:30 20:25 WBC Lymph % (Auto) Lymph # [place] # Seg Neutrophils % Seg Neutrophils # Sodium Chloride Carbon Dioxide BUN Glucose POC Glucose 393 H 303 H 179 H Lactic Acid NT-Pro-B Natriuret Pep Albumin 10/06/18 10/06/18 10:28 12:48 WBC Lymph % (Auto) Lymph # [place] # Seg Neutrophils % Seg Neutrophils # Sodium 134 L Chloride 89.8 L Carbon Dioxide BUN 31 H Glucose 346 H POC Glucose 327 H Lactic Acid NT-Pro-B Natriuret Pep Albumin
[2018-10-06] MEDS: SODIUM CHLORIDE FLUSH SYRINGE 10 ML IV SCH (19:52)
[2018-10-06 20:10] LABS: Hematocrit 36.8 % (30.3-42.9); Mean Corpuscular HGB Conc 33 % (30-34); Mean Corpuscular Volume 89 fl (79-97); Platelet Count 300 K/mm3 (140-440); Red Blood Count 4.16 M/mm3 (3.65-5.03); Red Cell Distribution Width 13.8 % (13.2-15.2)
[2018-10-06] MEDS: LANTUS SUB-Q SCH (23:21)
[2018-10-06] MEDS: XANAX PO SCH (23:22)
[2018-10-06] MEDS: NEURONTIN PO SCH (23:22)
[2018-10-07] MEDS: METAMUCIL PO SCH ×2 (01:20→09:58)
[2018-10-07] MEDS: PULMICORT IH SCH ×3 (08:37→20:46)
[2018-10-07] MEDS: BROVANA NEBU IH SCH ×3 (08:37→20:46)
[2018-10-07] MEDS: SPIRIVA IH SCH ×2 (08:44→09:14)
[2018-10-07] MEDS: HumaLOG SUB-Q SCH ×5 (09:16→22:09)
[2018-10-07] MEDS: PROCARDIA XL PO SCH (09:56)
[2018-10-07] MEDS: ELIQUIS PO SCH (09:58)
[2018-10-07] MEDS: SOLU-Medrol IV SCH ×2 (09:58→22:08)
[2018-10-07] MEDS: HCTZ PO SCH (09:59)
[2018-10-07] MEDS: DIOVAN PO SCH (09:59)
[2018-10-07] MEDS: SODIUM CHLORIDE FLUSH SYRINGE 10 ML IV SCH ×3 (10:00→22:11)
[2018-10-07] MEDS ORDERED: LANTUS SUB-Q ONE (10:20)
--- NOTE | 2018-10-07 10:22 | Progress Note ---
Assessment and Plan Assessment and plan: --Type 2 diabetes mellitus ; uncontrolled, probably secondary to steroid use, Accu-Chek sliding scale coverage and ADA diet check A1c Increase Lantus dose, additional dose of Lantus this morning -- Sepsis/lactic acidosis continue IV antibiotic , IVF , cultures negative to date -- Pneumonia/community acquired Continue oral antibiotics, oxygen titrated to O2 sats more than 90%, Supportive care --Acute respiratory failure with hypoxia Secondary to COPD exacerbation Continue oxygen, nebulizers, tapering dose of steroids, antibiotics -- COPD exacerbation Bronchodilators ,inhalation steroids, tapering dose of steroids --History of A. fib; rate controlled continue beta blockers, anticoagulation with Eliquis --DVT prophylaxis SCD to BLE while in bed/Eliquis Possible discharge home tomorrow if stable History Interval history: Patient seen and examined medical records reviewed Patient's blood sugars are uncontrolled Partly secondary to steroids Patient alert awake oriented 3 Vital signs reviewed Hospitalist Physical - Constitutional Vitals: Temp Pulse Resp BP Pulse Ox 97.9 F 99 H 20 131/51 96 10/07/18 05:58 10/07/18 09:59 10/07/18 08:49 10/07/18 09:59 10/07/18 08:37 General appearance: Present: no acute distress, well-nourished - EENT Eyes: Present: PERRL, EOM intact - Neck Neck: Present: supple, normal ROM - Respiratory Respiratory effort: normal Respiratory: bilateral: diminished, negative: rales, rhonchi, wheezing - Cardiovascular Rhythm: regular Heart Sounds: Present: S1 & S2 - Extremities Extremities: no ischemia, No edema - Abdominal General gastrointestinal: soft, non-tender, non-distended, normal bowel sounds - Integumentary Integumentary: Present: clear, warm - Psychiatric Psychiatric: appropriate mood/affect, cooperative - Neurologic Neurologic: CNII-XII intact, moves all extremities Results - Labs CBC & Chem 7: 10/06/18 19:31 10/06/18 10:28 Labs: Laboratory Last Values WBC 14.9 K/mm3 (4.5-11.0) H 10/06/18 19:31 RBC 4.16 M/mm3 (3.65-5.03) 10/06/18 19:31 Hgb 12.0 gm/dl (10.1-14.3) 10/06/18 19:31 Hct 36.8 % (30.3-42.9) 10/06/18 19:31 MCV 89 fl (79-97) 10/06/18 19:31 MCH 29 pg (28-32) 10/06/18 19:31 MCHC 33 % (30-34) 10/06/18 19:31 RDW 13.8 % (13.2-15.2) 10/06/18 19:31 Plt Count 300 K/mm3 (140-440) 10/06/18 19:31 Lymph % (Auto) 5.4 % (13.4-35.0) L 10/04/18 16:09 [place] % (Auto) 7.3 % (0.0-7.3) 10/04/18 16:09 Eos % (Auto) 0.2 % (0.0-4.3) 10/04/18 16:09 Baso % (Auto) 0.5 % (0.0-1.8) 10/04/18 16:09 Lymph # 0.8 K/mm3 (1.2-5.4) L 10/04/18 16:09 [place] # 1.1 K/mm3 (0.0-0.8) H 10/04/18 16:09 Eos # 0.0 K/mm3 (0.0-0.4) 10/04/18 16:09 Baso # 0.1 K/mm3 (0.0-0.1) 10/04/18 16:09 Seg Neutrophils % 86.6 % (40.0-70.0) H 10/04/18 16:09 Seg Neutrophils # 13.4 K/mm3 (1.8-7.7) H 10/04/18 16:09 Sodium 134 mmol/L (137-145) L 10/06/18 10:28 Potassium 4.1 mmol/L (3.6-5.0) 10/06/18 10:28 Chloride 89.8 mmol/L (98-107) L 10/06/18 10:28 Carbon Dioxide 29 mmol/L (22-30) 10/06/18 10:28 Anion Gap 19 mmol/L 10/06/18 10:28 BUN 31 mg/dL (7-17) H 10/06/18 10:28 Creatinine 1.2 mg/dL (0.7-1.2) 10/06/18 10:28 Estimated GFR 43 ml/min 10/06/18 10:28 BUN/Creatinine Ratio 26 % 10/06/18 10:28 Glucose 346 mg/dL (65-100) H 10/06/18 10:28 POC Glucose 254 (70-105) H 10/07/18 08:22 Lactic Acid 1.40 mmol/L (0.7-2.0) 10/06/18 10:31 Calcium 8.5 mg/dL (8.4-10.2) 10/06/18 10:28 Total Bilirubin 0.90 mg/dL (0.1-1.2) 10/04/18 16:09 AST 19 units/L (5-40) 10/04/18 16:09 ALT 8 units/L (7-56) 10/04/18 16:09 Alkaline Phosphatase 75 units/L (35-129) 10/04/18 16:09 NT-Pro-B Natriuret Pep 3123 pg/mL (0-900) H 10/04/18 16:09 Total Protein 6.4 g/dL (6.3-8.2) 10/04/18 16:09 Albumin 3.7 g/dL (3.9-5) L 10/04/18 16:09 Albumin/Globulin Ratio 1.4 % 10/04/18 16:09 Urine Color [place] (Yellow) 10/04/18 21:25 Urine Turbidity Slightly-cloudy (Clear) 10/04/18 21:25 Urine pH 5.0 (5.0-7.0) 10/04/18 21:25 Ur Specific [place] 1.020 (1.003-1.030) 10/04/18 21:25 Urine Protein 30 mg/dl mg/dL (Negative) 10/04/18 21:25 Urine Glucose (UA) 150 mg/dL (Negative) 10/04/18 21:25 Urine Ketones Neg mg/dL (Negative) 10/04/18 21:25 Urine Blood Neg (Negative) 10/04/18 21:25 Urine Nitrite Neg (Negative) 10/04/18 21:25 Urine Bilirubin Neg (Negative) 10/04/18 21:25 Urine Urobilinogen < 2.0 mg/dL (<2.0) 10/04/18 21:25 Ur Leukocyte Esterase Neg (Negative) 10/04/18 21:25 Urine WBC (Auto) 2.0 /HPF (0.0-6.0) 10/04/18 21:25 Urine RBC (Auto) 1.0 /HPF (0.0-6.0) 10/04/18 21:25 U Epithel Cells (Auto) < 1.0 /HPF (0-13.0) 10/04/18 21:25 Urine Mucus Few /HPF 10/04/18 21:25
[2018-10-07] MEDS ORDERED: LANTUS SUB-Q SCH ×2 (10:53→22:00)
[2018-10-07] MEDS: LEVAQUIN PO SCH ×2 (10:59)
--- NOTE | 2018-10-07 11:03 | Progress Note ---
Assessment and Plan 78 y/o female with chronic respiratory failure, admitted with likely dyspnea secondary to acute bronchitis. No new recs, patient not discharging today secondary to sugars. Steroid taper and abx recs below 1. Continue Levaquin. Will need for a total of 8 days. 2. Suggest changing to Prednisone 40 daily and tape as follows. 40x2, 2 0x2,10x2 then stop. 3. Continue supplemental O2 4. All others per primary team 5. From a lung standpoint, should be stable for discharge tomorrow. Subjective Date of service: 10/07/18 Interval history: No acute events. Pulm status is stable. Objective Vital Signs - 12hr 10/07/18 10/07/18 10/07/18 01:18 05:58 08:37 Temperature 97.9 F Pulse Rate 86 87 Pulse Rate [ 90 Anterior Bilateral Throughout] Respiratory 18 18 Rate Respiratory 20 Rate [Anterior Bilateral Throughout] Blood Pressure 110/42 Blood Pressure 118/54 [Right] O2 Sat by Pulse 99 98 96 Oximetry 10/07/18 10/07/18 10/07/18 08:44 08:47 08:49 Temperature Pulse Rate Pulse Rate [ 97 H 95 H 100 H Anterior Bilateral Throughout] Respiratory Rate Respiratory 20 20 20 Rate [Anterior Bilateral Throughout] Blood Pressure Blood Pressure [Right] O2 Sat by Pulse Oximetry 10/07/18 09:59 Temperature Pulse Rate 99 H Pulse Rate [ Anterior Bilateral Throughout] Respiratory Rate Respiratory Rate [Anterior Bilateral Throughout] Blood Pressure 131/51 Blood Pressure [Right] O2 Sat by Pulse Oximetry Constitutional: no acute distress, alert Eyes: non-icteric ENT: oropharynx moist Neck: supple Effort: normal Ascultation: Bilateral: clear (anteriorly) CBC and BMP: 10/06/18 19:31 10/06/18 10:28 Abnormal lab findings: Abnormal Labs 10/04/18 10/04/18 10/04/18 16:09 16:09 16:09 WBC 15.4 H Lymph % (Auto) 5.4 L Lymph # 0.8 L [place] # 1.1 H Seg Neutrophils % 86.6 H Seg Neutrophils # 13.4 H Sodium 131 L Chloride 87.2 L Carbon Dioxide 31 H BUN 24 H Glucose 235 H POC Glucose Lactic Acid NT-Pro-B Natriuret Pep 3123 H Albumin 3.7 L 10/04/18 10/05/18 10/05/18 21:59 09:08 09:12 WBC Lymph % (Auto) Lymph # [place] # Seg Neutrophils % Seg Neutrophils # Sodium Chloride Carbon Dioxide BUN Glucose POC Glucose 322 H Lactic Acid 2.50 H* 2.70 H* NT-Pro-B Natriuret Pep Albumin 10/05/18 10/05/18 10/05/18 12:37 16:30 20:25 WBC Lymph % (Auto) Lymph # [place] # Seg Neutrophils % Seg Neutrophils # Sodium Chloride Carbon Dioxide BUN Glucose POC Glucose 393 H 303 H 179 H Lactic Acid NT-Pro-B Natriuret Pep Albumin 10/06/18 10/06/18 10/06/18 10:28 12:48 19:31 WBC 14.9 H Lymph % (Auto) Lymph # [place] # Seg Neutrophils % Seg Neutrophils # Sodium 134 L Chloride 89.8 L Carbon Dioxide BUN 31 H Glucose 346 H POC Glucose 327 H Lactic Acid NT-Pro-B Natriuret Pep Albumin 10/06/18 10/07/18 23:11 08:22 WBC Lymph % (Auto) Lymph # [place] # Seg Neutrophils % Seg Neutrophils # Sodium Chloride Carbon Dioxide BUN Glucose POC Glucose 368 H 254 H Lactic Acid NT-Pro-B Natriuret Pep Albumin
[2018-10-07] MEDS ORDERED: MILK OF MAGNESIA PO ONE (18:20)
[2018-10-07] MEDS: NEURONTIN PO SCH (22:07)
[2018-10-07] MEDS: XANAX PO SCH (22:09)
[2018-10-08] MEDS: BROVANA NEBU IH SCH (08:06)
[2018-10-08] MEDS: PULMICORT IH SCH (08:06)
[2018-10-08] MEDS: SPIRIVA IH SCH ×2 (08:07→11:44)
[2018-10-08] MEDS: HumaLOG SUB-Q SCH ×2 (08:15→12:36)
[2018-10-08] MEDS: ELIQUIS PO SCH (10:16)
[2018-10-08] MEDS: SOLU-Medrol IV SCH (10:16)
[2018-10-08] MEDS: METAMUCIL PO SCH ×2 (10:16→10:20)
[2018-10-08] MEDS: LEVAQUIN PO SCH (10:16)
[2018-10-08] MEDS: HCTZ PO SCH (10:17)
[2018-10-08] MEDS: PROCARDIA XL PO SCH (10:17)
[2018-10-08] MEDS: SODIUM CHLORIDE FLUSH SYRINGE 10 ML IV SCH (10:20)
[2018-10-08] MEDS: DIOVAN PO SCH (10:33)
--- NOTE | 2018-10-08 11:39 | Discharge Summary ---
Providers - Providers Date of Admission: 10/04/18 19:32 Date of discharge: 10/08/18 Attending physician: SIRENA STOCK 10/04/18 18:37 Consult to Physician [CONS] Routine Comment: Consulting Provider: EUSEBIA WATERMAN Physician Instructions: Reason For Exam: pneumonia [facility] Reason for admission: worsening shortness of breath/productive cough Condition: Stable Pertinent studies: Chest x-ray; nonspecific interstitial prominence may reflect scarring or fi brosis, possible pneumonitis Hospital course: 78-year-old female patient with multiple medical problems was admitted through emergency room with worsening shortness of breath and productive cough., Admitted to the hospital symptomatically managed, with oxygen nebulizers and IV steroids and IV antibiotics and supportive care, pulmonary evaluated the patient and medications were optimized Patient's symptoms gradually improved, cultures were negative to date Today patient is comfortable no new complaints, Ambulatory tolerating oral nutrition Vital signs stable, physical examination no new changes Hemodynamically and clinically stable for discharge Discharge diagnosis and management; --Type 2 diabetes mellitus ; uncontrolled, probably secondary to steroid use, Well-controlled today, continue Lantus, ADA diet -- Sepsis/lactic acidosis Received IV antibiotic , IVF , cultures negative to date -- Pneumonia/acute bronchitis/pneumonitis Seemed IV antibiotics Discharge on oral antibiotics, Supportive care --Acute respiratory failure with hypoxia Secondary to COPD exacerbation , acute bronchitis nebulizers, tapering dose of steroids, antibiotics -- COPD exacerbation Bronchodilators ,tapering dose of steroids --History of A. fib; rate controlled continue beta blockers, anticoagulation with Eliquis Patient is stable at discharge Disposition: WI- TO HOME OR SELFCARE Time spent for discharge: 31 min Core Measure Documentation - Palliative Care Palliative Care/ Comfort Measures: Not Applicable - Core Measures Any of the following diagnoses?: none Exam - Constitutional Vitals: Temp Pulse Resp BP Pulse Ox 97.9 F 88 18 132/59 95 10/08/18 05:00 10/08/18 10:33 10/08/18 08:22 10/08/18 10:33 10/08/18 08:06 General appearance: Present: no acute distress, well-nourished - EENT Eyes: Present: PERRL, EOM intact - Neck Neck: Present: supple, normal ROM - Respiratory Respiratory effort: normal Respiratory: bilateral: diminished, negative: rales, rhonchi, wheezing - Cardiovascular Rhythm: regular Heart Sounds: Present: S1 & S2 - Extremities Extremities: no ischemia, No edema - Abdominal General gastrointestinal: Present: soft, non-tender, non-distended, normal bowel sounds - Integumentary Integumentary: Present: clear, warm - Musculoskeletal Musculoskeletal: strength equal bilaterally - Psychiatric Psychiatric: appropriate mood/affect, cooperative - Neurologic Neurologic: moves all extremities Plan Activity: advance as tolerated, fall precautions Diet: diabetic Additional Instructions: your sugars will run high because of steroids, once the steroid dose is completed, sugars will improve [facility] [Primary Care Provider] - 7 Days EUSEBIA WATERMAN MD [Staff Physician] - 7 Days Prescriptions: ALBUTEROL Inhaler(NF) [VENTOLIN Inhaler(NF)] 1 puff IH QID PRN #1 inha PRN Reason: Shortness Of Breath levoFLOXacin [Levaquin TAB] 750 mg PO Q24HR #4 tablet predniSONE [Deltasone] 4 tab PO QDAY #14 tab
--- NOTE | 2018-10-08 12:15 | Progress Note ---
Assessment and Plan 78 y/o female with chronic respiratory failure, admitted with likely dyspnea secondary to acute bronchitis. Agree with discharge, abx and steroid recommendations below. Follow up in the office in 10-14 days. 1. Continue Levaquin. Will need for a total of 8 days. 2. Suggest changing to Prednisone 40 daily and tape as follows. 40x2, 20x2,10x2 then stop. 3. Continue supplemental O2 Subjective Date of service: 10/08/18 Interval history: No acute events. Going home today. Objective Vital Signs - 12hr 10/08/18 10/08/18 10/08/18 00:21 05:00 08:06 Temperature 97.6 F 97.9 F Pulse Rate 87 83 Pulse Rate [ 85 Anterior Bilateral Throughout] Respiratory 20 20 Rate Respiratory 18 Rate [Anterior Bilateral Throughout] Blood Pressure 120/52 113/51 O2 Sat by Pulse 94 94 95 Oximetry 10/08/18 10/08/18 10/08/18 08:10 08:11 08:22 Temperature Pulse Rate Pulse Rate [ 95 H 90 91 H Anterior Bilateral Throughout] Respiratory Rate Respiratory 18 18 18 Rate [Anterior Bilateral Throughout] Blood Pressure O2 Sat by Pulse Oximetry 10/08/18 10/08/18 10:17 10:33 Temperature Pulse Rate 88 Pulse Rate [ Anterior Bilateral Throughout] Respiratory Rate Respiratory Rate [Anterior Bilateral Throughout] Blood Pressure 132/59 132/59 O2 Sat by Pulse Oximetry Constitutional: no acute distress, alert Eyes: non-icteric ENT: oropharynx moist Neck: supple Effort: normal Ascultation: Bilateral: clear (anteriorly) CBC and BMP: 10/06/18 19:31 10/06/18 10:28 Abnormal lab findings: Abnormal Labs 10/04/18 10/04/18 10/04/18 16:09 16:09 16:09 WBC 15.4 H Lymph % (Auto) 5.4 L Lymph # 0.8 L [place] # 1.1 H Seg Neutrophils % 86.6 H Seg Neutrophils # 13.4 H Sodium 131 L Chloride 87.2 L Carbon Dioxide 31 H BUN 24 H Glucose 235 H POC Glucose Lactic Acid NT-Pro-B Natriuret Pep 3123 H Albumin 3.7 L 10/04/18 10/05/18 10/05/18 21:59 09:08 09:12 WBC Lymph % (Auto) Lymph # [place] # Seg Neutrophils % Seg Neutrophils # Sodium Chloride Carbon Dioxide BUN Glucose POC Glucose 322 H Lactic Acid 2.50 H* 2.70 H* NT-Pro-B Natriuret Pep Albumin 10/05/18 10/05/18 10/05/18 12:37 16:30 20:25 WBC Lymph % (Auto) Lymph # [place] # Seg Neutrophils % Seg Neutrophils # Sodium Chloride Carbon Dioxide BUN Glucose POC Glucose 393 H 303 H 179 H Lactic Acid NT-Pro-B Natriuret Pep Albumin 10/06/18 10/06/18 10/06/18 10:28 12:48 19:31 WBC 14.9 H Lymph % (Auto) Lymph # [place] # Seg Neutrophils % Seg Neutrophils # Sodium 134 L Chloride 89.8 L Carbon Dioxide BUN 31 H Glucose 346 H POC Glucose 327 H Lactic Acid NT-Pro-B Natriuret Pep Albumin 10/06/18 10/07/18 10/07/18 23:11 08:22 11:07 WBC Lymph % (Auto) Lymph # [place] # Seg Neutrophils % Seg Neutrophils # Sodium Chloride Carbon Dioxide BUN Glucose POC Glucose 368 H 254 H 298 H Lactic Acid NT-Pro-B Natriuret Pep Albumin 10/07/18 10/07/18 10/08/18 15:57 20:54 07:52 WBC Lymph % (Auto) Lymph # [place] # Seg Neutrophils % Seg Neutrophils # Sodium Chloride Carbon Dioxide BUN Glucose POC Glucose 245 H 161 H 199 H Lactic Acid NT-Pro-B Natriuret Pep Albumin 10/08/18 11:36 WBC Lymph % (Auto) Lymph # [place] # Seg Neutrophils % Seg Neutrophils # Sodium Chloride Carbon Dioxide BUN Glucose POC Glucose 240 H Lactic Acid NT-Pro-B Natriuret Pep Albumin
[2018-10-08 15:32] VITALS: BP 146/62
== END 2018-10-08 16:42 | disposition home or self-care (01) | DRG 871 ==
LOC: ED 15:04 → IMCU 19:32 → 3A 10-06 22:22
PROVIDERS: ADMIT Internal Medicine; ATTEND Internal Medicine
DX: A41.9 Sepsis, unspecified organism (principal); J18.1 Lobar pneumonia, unspecified organism; J96.21 Acute and chronic respiratory failure with hypoxia; J44.1 Chronic obstructive pulmonary disease with (acute) exacerbation; J44.0 Chronic obstructive pulmonary disease with (acute) lower respiratory infection; E09.9 Drug or chemical induced diabetes mellitus without complications; T38.0X5A Adverse effect of glucocorticoids and synthetic analogues, initial encounter; J20.9 Acute bronchitis, unspecified; I48.91 Unspecified atrial fibrillation; I10 Essential (primary) hypertension; G89.29 Other chronic pain; M54.9 Dorsalgia, unspecified; Y92.89 Other specified places as the place of occurrence of the external cause; Z90.49 Acquired absence of other specified parts of digestive tract; Z90.710 Acquired absence of both cervix and uterus; Z82.49 Family history of ischemic heart disease and other diseases of the circulatory system; Z83.3 Family history of diabetes mellitus; Z88.0 Allergy status to penicillin; Z88.1 Allergy status to other antibiotic agents; Z79.899 Other long term (current) drug therapy; Z79.4 Long term (current) use of insulin; Z79.01 Long term (current) use of anticoagulants
CPT/HCPCS: 36415; 71045; 80048; 80053; 81001; 82140; 82962; 83880; 85025; 85027; 87040; 87400; 94640; 94760; G0378; J0456; J0696; J1815; J2920; J7050